=== PATIENT | female | born 1965 | race Caucasian/White ===

== ENCOUNTER 2024-11-04 11:04 | Outpatient (CLI) | payer BC, SELFPAY ==
--- NOTE | ~2024-11-04 | MM_ITS ---
EXAMINATION: MM screening giacomo BI w estefanía HISTORY: Screening TECHNIQUE: Craniocaudal and mediolateral oblique 3-D tomosynthesis images were obtained and synthetic 2-D images were generated. CAD analysis was submitted and interpreted. COMPARISON: Comparison to multiple prior studies sequentially, with oldest reviewed study dated 08/2015. BREAST PARENCHYMAL COMPOSITION: Not dense: There are scattered areas of fibroglandular density. FINDINGS: There is no evidence of suspicious mass, calcification, or architectural distortion to sugg est malignancy in either breast. There has been no suspicious interval change. IMPRESSION: 1. No mammographic evidence of malignancy. 2. Recommend routine screening mammography in one year. BI-RADS Category 1: Negative Reviewed, dictated and finalized at location A.
--- OUTSIDE RECORDS SUMMARY | 2024-11-04 16:26 | XMS_ITS | Referral Summary ---
Author Organization [facility] [place] [address] lto Address [address] [place] [address] Care Team Providers Care Abstractor Name Role Phone Cash Kaplan MD Primary Care Provider [phone] Jefferson Waite MD Unavailable [phone] Jayant Aguila DC Unavailable [phone] [place] Unavailable [phone] Alexander Amos MD PhD Unavailable [phone] Encounters Date Type Department Care Team Description 10/04/2024 Telephone [facility] [address] [address] Cash Kaplan MD 09/20/2024 2:30 PM CDT Office Visit [facility] [address] [address] Cash Kaplan MD Chronic hypoxemic respiratory failure (HCC) (Primary Dx); Pulmonary hypertension associated with mediastinal fibrosis (CMS/HCC) (HCC); Systolic congestive heart failure, unspecified HF chronicity (HCC); ICD (implantable cardioverter-defibrill ator) in place; Encounter for screening mammogram for malignant neoplasm of breast; Paroxysmal atrial fibrillation (HCC); Controlled type 2 diabetes mellitus without complication, without long-term current use of insulin (HCC); BMI 30.0-30.9,adult; Obesity (BMI 30.0-34.9) 09/11/2024 8:45 AM CDT Lab [facility] [address] [place] [address] Controlled type 2 diabetes mellitus without complication, without long-term current use of insulin (HCC) 09/08/2024 Telephone [facility] [address] [place] [address] Cash Kaplan MD Medical Question/Miscellaneous 08/10/2024 7:15 AM STOREROOM KEEPER Ancillary Procedure [place] [employer] Chief [address] [place] [id number] Dilated cardiomyopathy (HCC); ICD (implantable cardioverter-defibrill ator) in place; SVT (supraventricular tachycardia); SSS (sick sinus syndrome) ([facility]) from Last 3 Months Allergies No known active allergies Medications aspirin 81 mg tablet Take 1 tablet (81 mg total) by mouth nightly Active oxygen Administer 3 L/min into each nostril as needed Active fluticasone propionate (FLONASE) 50 mcg/actuation nasal spray Administer 2 sprays into each nostril daily 16 mL 11 3 Active blood glucose diagnostic (glucose blood) strip Use as directed to test blood sugar 100 each 11 4 Active furosemide (LASIX) 40 mg tablet TAKE 1 TABLET BY MOUTH EVERY DAY 90 tablet 3 4 Active atorvastatin (LIPITOR) 20 mg tablet TAKE 1 TABLET BY MOUTH EVERY DAY 90 tablet 3 4 Active blood-glucose meter (OneTouch Ultra2 Meter) [facility] USE DAILY OR DIRECTED FOR MONITORING OF DIABETES. 1 each 1 4 Active potassium chloride ER (KLOR-CON) 20 mEq CR tablet Take 1 tablet (20 mEq total) by mouth daily 90 tablet 3 4 Active spironolactone (ALDACTONE) 25 mg tablet TAKE 1 TABLET BY MOUTH EVERY DAY 90 tablet [address] (PROTONIX) 40 mg EC tabletIndication s:Gastroesophage al reflux disease, unspecified whether esophagitis present Take 1 tablet (40 mg total) by mouth daily 90 tablet 1 4 Active nx-Rh-jtn-iron-f olic-phytostrl 3-200-400 mg-mcg-mg tablet Take 2 capsules by mouth daily Active losartan (COZAAR) 25 mg tablet Take 0.5 tablets (12.5 mg total) by mouth daily 15 tablet 11 4 06/06/20 25 Active carvediloL (COREG) 25 mg tablet Take 1 tablet (25 mg total) by mouth 2 (two) times a day 180 tablet 3 5 Active Active Problems Problem Noted Date Diagnosed Date Paroxysmal atrial fibrillation 09/28/2024 Assessment & Plan (09/28/2024 1:52 PM CDT): No bleeding diatheses and will monitor response. Encounter for screening mamm ogram for malignant neoplasm of breast 09/28/2024 Assessment & Plan (09/28/2024 1:53 PM CDT): Breast cancer screening and mammogram and will follow response. BMI 30.0-30.9,adult 09/28/2024 Assessment & Plan (09/28/2024 1:53 PM CDT): Encoruage 150min/week aerobic exericse. Healthy food choices and will follow response. Obesity (BMI 30.0-34.9) 09/28/2024 Controlled type 2 diabetes m ellitus without complication, without long-term current use of insulin 03/27/2024 Assessment & Plan (09/28/2024 1:53 PM CDT): Diet controlled and will continue to follow repsonse. Assessment & Plan (03/27/2024 3:21 PM CDT): Lab Results Component Value Date HGBA1C 6.8 (H) 03/20/2024 HGBA1C 7.2 (H) 09/13/2023 HGBA1C 6.5 (H) 08/19/2020 Improving; continues checking bg daily. Average am fasting < 120. Is tracking intake and sugars. Noted benefit from visit with staff educator. Encounter for fitting or adj ustment of implantable cardioverter-defibrillator (ICD) 12/06/2023 ICD (implantable cardioverter-defibrillator) dis charge 07/06/2023 Inappropriate shocks from IC D (implantable cardioverter-defibrillator) due to SVT 07/06/2023 Assessment & Plan (07/13/2023 9:14 AM STOREROOM KEEPER): Presenting with inappropriate ICD shocks from SVT, likely atrial tachycardia. Given her complex pulmonary and pulmonary vein history with multiple prior interventions including pulmonary vein stenting, she has probable substrate for inducing atrial arrhythmias. She is having breakthrough arrhythmias and ICD shocks despite maximum dose carvedilol 25 mg b.i.d. and is transferred for consideration of ablation. This will need to be weighed against her history of severe pulmonary HTN and procedural risks versus a trial of medical therapy. Her mediastinal fibrosis likely precludes the use of amiodarone, but could consider sotalol, flecainide, propafenone and/or re-initiation of digoxin -device interrogation with inappropriate shocks for SVT --> VT1 zone increased from 170bpm to 185bpm -continue carvedilol 25 mg b.i.d. -continue dofetilide 500mcg BID with EKG 2 hours after each dose -EKGs stable -strict telemetry -antiarrhythmic management d/w Dr. Euceda--he does not feel pt would be appropriate amiodarone candidate from pulmonary standpoint. She has previously tolerated gen anesthesia so would likely be ok for anesthesia if ablation needs to be pursued -rx sent to [facility], requires PA - PA submitted and approved -pt had SVT 07/09 requiring adenosine and dofetilide increased to 500mcg BID, had SVT again 07/11 requiring adenosine -plan for SVT ablation today Assessment & Plan (07/09/2023 12:07 PM STOREROOM KEEPER): Presenting with inappropriate ICD shocks from SVT, likely atrial tachycardia. Given her complex pulmonary and pulmonary vein history with multiple prior interventions including pulmonary vein stenting, she has probable substrate for inducing atrial arrhythmias. She is having breakthrough arrhythmias and ICD shocks despite maximum dose carvedilol 25 mg b.i.d. and is transferred for consideration of ablation. This will need to be weighed against her history of severe pulmonary HTN and procedural risks versus a trial of medical therapy. Her mediastinal fibrosis likely precludes the use of amiodarone, but could consider sotalol, flecainide, propafenone and/or re-initiation of digoxin -device interrogation with inappropriate shocks for SVT -continue carvedilol 25 mg b.i.d. -dofetilide load started--second dose will be this am -EKG last night stable -continue dofetilide 250mcg BID and follow EKG 2 hours after each dose -strict telemetry -antiarrhythmic management d/w Dr. Euceda--he does not feel pt would be appropriate amiodarone candidate from pulmonary standpoint. She has previously tolerated gen anesthesia so would likely be ok for anesthesia if ablation needs to be pursued -rx sent to [facility] pharmacy for paula check Assessment & Plan (07/08/2023 9:16 AM STOREROOM KEEPER): Presenting with inappropriate ICD shocks from SVT, likely atrial tachycardia. Given her complex pulmonary and pulmonary vein history with multiple prior interventions including pulmonary vein stenting, she has probable substrate for inducing atrial arrhythmias. She is having breakthrough arrhythmias and ICD shocks despite maximum dose carvedilol 25 mg b.i.d. and is transferred for consideration of ablation. This will need to be weighed against her history of severe pulmonary HTN and procedural risks versus a trial of medical therapy. Her mediastinal fibrosis likely precludes the use of amiodarone, but could consider sotalol, flecainide, propafenone and/or re-initiation of digoxin -device interrogation with inappropriate shocks for SVT -continue carvedilol 25 mg b.i.d. -dofetilide load started--second dose will be this am -EKG last night stable -continue dofetilide 250mcg BID and follow EKG 2 hours after each dose -strict telemetry Assessment & Plan (07/07/2023 3:59 PM STOREROOM KEEPER): Presenting with inappropriate ICD shocks from SVT, likely atrial tachycardia. Given her complex pulmonary and pulmonary vein history with multiple prior interventions including pulmonary vein stenting, she has probable substrate for inducing atrial arrhythmias. She is having breakthrough arrhythmias and ICD shocks despite maximum dose carvedilol 25 mg b.i.d. and is transferred for consideration of ablation. This will need to be weighed against her history of severe pulmonary HTN and procedural risks versus a trial of medical therapy. Her mediastinal fibrosis likely precludes the use of amiodarone, but could consider sotalol, flecainide, propafenone and/or re-initiation of digoxin -device interrogation with inappropriate shocks for SVT -continue carvedilol 25 mg b.i.d. 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 Navjot Lambert She is doing well post ablation without recurrence of SVT Continue coreg Impaired fasting glucose 03/05/2023 Assessment & Plan (03/05/2023 9:39 AM CDT): Will check A1c with upcoming labs. Mixed hyperlipidemia 03/05/2023 Assessment & Plan (03/05/2023 9:44 AM CDT): Patient is compliant with atorvastatin 20 mg daily, LDL at goal of less than 100. Pericarditis 07/29/2022 BMI 29.0-29.9,adult 10/14/2021 Assessment & Plan (03/05/2023 9:40 AM CDT): Discussed healthy diet and importance of regular physical activity. Assessment & Plan (10/14/2021 8:52 AM CDT): Weight down. Working from home still. Reviewed need to lose weight, reviewed health benefits. Reviewed recommendations for daily intake & activity 20-30 minutes/day. Discussed healthy diet and importance of regular physical activity. Need for zoster vaccination 10/14/2021 Assessment & Plan (10/14/2021 9:49 AM CDT): Varicella-zoster vaccine given today. Discussed possible tenderness/redness at injection site. Aware to return in 2-6 months. Chronic hypoxemic respiratory failure 09/01/2021 Assessment & Plan (09/28/2024 1:52 PM CDT): Continues on O2 3 LPM via NC and will monitor response. Pacemaker generator end of life 07/18/2021 Overview (07/18/2021): Added automatically from request for surgery [id number] Encounter for well woman exa m with routine gynecological exam 09/19/2020 Assessment & Plan (10/14/2021 8:53 AM CDT): [facility]: pap & breast exam completed today. Will call w/pap results when received. Instructed in SBE. to perform monthly in shower; preferably after menses. Aware that she may have some blood tinged discharge with wiping today after pap. Assessment & Plan (09/19/2020 12:36 PM CDT): WWE: pap & breast exam completed today. Will call w/pap results when received. Instructed in SBE. to perform monthly in shower; preferably after menses. Aware that she may have some blood tinged discharge with wiping today after pap. Encounter for osteoporosis s creening in asymptomatic postmenopausal patient 09/19/2020 Assessment & Plan (10/14/2021 8:53 AM CDT): DEXA ordered. Will contact with results once received. Assessment & Plan (09/19/2020 12:36 PM CDT): DEXA ordered. Will contact with results once received. Will have done at [facility]. Breast cancer screening by mammogram 09/19/2020 Assessment & Plan (03/05/2023 9:40 AM CDT): Patient to call and schedule mammogram, order given today. Assessment & Plan (10/14/2021 8:53 AM CDT): Last mamm 05/2018. Mammogram order given; will call with results when received. Encouraged to perform monthly SBE. Assessment & Plan (09/19/2020 12:41 PM CDT): Mammogram order given; will call with results when received. Encouraged to perform monthly SBE. Will have done at [facility]. Pre-transplant evaluation for lung transplant Overview (07/25/2020): Added automatically from request for surgery [id number] AVNRT (AV dinora re-entry tachycardia) 11/02/2019 Overview (06/06/2024): Status post slow pathway ablation of AVNRT on 13 July 2023 ([facility])--apparently, there was a pathway on the left side that was not ablated.. Had AFib with RVR on 14 July 2017 causing ICD shock. Not on full-dose oral anticoagulation. Assessment & Plan (06/06/2024 9:11 AM STOREROOM KEEPER): Having occasional episodes of fast heartbeats. It could be SVT or nonsustained V-tach. Assessment & Plan (12/21/2023 10:00 AM CDT): Has had a few short runs of rapid heartbeat/palpitation but nothing like in June 2023 or July 2023 causing the ICD shocks. We discussed AV dinora reentry tachycardia ablation done 5 months ago. Today's ICD rep check showed a brief episode of SVT in mid November 2023. Assessment & Plan (03/05/2023 9:41 AM CDT): Patient denies any palpitations, dizziness or chest pain. Normal sinus rhythm today in office. Patient managed by Cardiology, ICD in place. Assessment & Plan (12/08/2022 9:03 AM CDT): Patient does not feel any palpitations, dizziness or syncope. We discussed today's ICD rep check showing 2 episodes of SVT lasting 10 seconds each. Will keep an eye on this issue. Assessment & Plan (12/09/2021 9:15 AM CDT): Patient denies any palpitations, dizziness or syncope. Ty Vasc score is 1 anyway. An in office device ICD check will be done in the next week or so. Assessment & Plan (11/07/2020 2:14 PM CDT): Patient has not had any palpitations, dizziness or syncope. Exam today revealed a regular rhythm. Assessment & Plan (11/14/2019 8:45 AM CDT): No recent palpitations dizziness or syncope. ICD (implantable cardioverter-defibrillator) in place 11/02/2019 Overview (06/06/2024): Status post Guidant ICD on 20 February 2005 for nonischemic cardiomyopathy. Replaced with [employer] Teligen 100 ICD on 19 August 2011. Replaced with [employer] ICD on 23 July 2021 (RL)--SVC coil had to be taken out of the loop. Had a self terminated 21 second episode of nonsustained V-tach on 29 April 2024. Assessment & Plan (09/28/2024 1:52 PM CDT): No firing of ICD , battery in place. Assessment & Plan (06/06/2024 9:11 AM STOREROOM KEEPER): We discussed nonsustained V-tach episode happening a few weeks ago occurring in the evening. She has been having occasional episodes of tachycardia lasting seconds only. Initially, I thought it might be AV dinora reentry tachycardia, but now it could be nonsustained V-tach episodes. Thus, we should restart losartan to get the heart stronger. Patient already on Coreg 25 mg p.o. b.i.d.. Assessment & Plan (12/21/2023 10:01 AM CDT): ICD rep check remotely earlier this month showed episode an episode of SVT in mid November 2023. Device rep check in the office showed great numbers otherwise. More than 12 years left on the device. Left upper chest site looks fine. Assessment & Plan (08/17/2023 9:52 AM STOREROOM KEEPER): Single chamber ICD is functioning appropriately as programmed Lead impedance, sensing, and threshold are stable No programming changes Continue remote monitoring Assessment & Plan (07/16/2023 10:34 AM STOREROOM KEEPER): Patient denies any ongoing or persistent palpitations. Did have 1 episode of for she thought she was having palpitations today of discharge. Assessment & Plan (12/08/2022 9:06 AM CDT): We discussed today's ICD rep check showing pretty good numbers. Also discussed device remote check from early November 2022 showing 1 episode of nonsustained V-tach. Again, she is asymptomatic. She will keep an eye on future episodes of palpitations, etc.. Assessment & Plan (12/09/2021 9:15 AM CDT): No ICD shocks since 2018. Patient denies any palpitations, dizziness or syncope. Unfortunately, device rep did not show up for an in office ICD rep check today. Will try to reschedule for an in office ICD rep check in the next week or two. We did discuss the device remote check from October 2021--everything looked good at that time. Left upper chest ICD site looks fine on my examination today. Assessment & Plan (07/30/2021 4:31 PM STOREROOM KEEPER): Patient has done well since ICD change out. No fever or wound drainage. Not much pain. Assessment & Plan (11/07/2020 2:13 PM CDT): Apparently now some issues with possible premature battery depletion. Will do remote check later this month to see what the status is. Otherwise, ICD rep check numbers good today. o evidence of atrial fibrillation. A few short nonsustained V-tach episodes. Assessment & Plan (11/14/2019 8:46 AM CDT): Discussed last remote from September 2019. One nonsustained V-tach terminated on its own. Patient would like to have a wireless remote. I called [employer] sales representatives and hopefully this can be taken care of soon. 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 On 3 L O2 nasal cannula 24/7 for several years now. Assessment & Plan (12/08/2022 9:04 AM CDT): Shortness of breath about the same. Will be seeing the hair specialist at [place] in a few days. We discussed severe pulmonary hypertension noted on echo from July 2022. Assessment & Plan (12/09/2021 9:16 AM CDT): No recent intervention by the [place] hair specialist. Shortness of breath is about the same--not any worse. CHF (congestive heart failure) 03/31/2018 Overview (06/06/2024): Moderate nonischemic cardiomyopathy in the past. Normal coronaries by catheterization on 20 April 2007 and on another catheterization 21 August 2020. Normal LV function by echo 06 July 2019. Normal LVEF on echo 08 October 2020. Normal LVEF on echo 23 October 2021. Normal LVEF on echo 30 July 2022. Mild LV systolic dysfunction on echo 08 July 2023. LVEF of 47%. Mild LV systolic dysfunction on echo 23 December 2023. LVEF of 46%. On Aldactone 25 mg daily, Lasix 40 mg daily, Coreg 25 b.i.d. On losartan 50 mg daily, her blood pressure dropped too much and she did not feel well. Assessment & Plan (09/28/2024 1:52 PM CDT): Fluid overload and will follow response. Continues to montior dailiy weights and will monitor response. Assessment & Plan (06/06/2024 9:08 AM STOREROOM KEEPER): We again discussed mild LV systolic dysfunction. Apparently could not take Entresto as per my discussion with the hair specialist. She will ask the hair specialist again in a few weeks to see why Entresto is contraindicated. In the meantime, we should retry losartan but at a much lower dose of 12.5 mg daily. Hopefully, she can take it because this will help get the LVEF better. This is important in light of the nonsustained V-tach episode noted a few weeks ago. We definitely want to get heart stronger. Empagliflozin is an option but it is expensive. Assessment & Plan (03/27/2024 3:56 PM CDT): Managed by cardiology. Patient reports she discontinued losartan due to symptomatic hypotension. Recommended she reach out to Cardiology update and for further medication management. Blood pressure is well controlled. Reviewed home blood pressure log, systolic averaging 106-118. Assessment & Plan (12/21/2023 9:24 AM CDT): Shortness of breath about the same. We discussed mild LV dysfunction noted on echo 5 months ago. She will get another echocardiogram with her hair specialist at [place] in 2 days. If LV still weak, we should add Entresto / p.o. b.i.d.. Assessment & Plan (07/16/2023 10:35 AM STOREROOM KEEPER): Stable, continues carvedilol 25 mg b.I.d., Lasix 40 mg daily and spironolactone 25 mg daily. Continue potassium supplement. Will have labs completed early next week. She is scheduled for follow-up with Cardiology Dr. Shen Assessment & Plan (07/12/2023 1:03 PM STOREROOM KEEPER): Initially diagnosed with dilated cardiomyopathy but has since had stable recovery of LV systolic function on guideline directed medical therapy. -hemodynamically stable, continue to be euvolemic on exam -continue carvedilol 25 mg b.i.d., lasix 40mg daily, and spironolactone 25mg daily -strict I&Os, daily standing weights, low-Na diet -telemetry Assessment & Plan (07/09/2023 12:06 PM STOREROOM KEEPER): Initially diagnosed with dilated cardiomyopathy but has since had stable recovery of LV systolic function on guideline directed medical therapy. -hemodynamically stable, continue to be euvolemic on exam -continue carvedilol 25 mg b.i.d., lasix 40mg daily, and spironolactone 25mg daily -strict I&Os, daily standing weights, low-Na diet -telemetry Assessment & Plan (07/08/2023 9:18 AM STOREROOM KEEPER): Initially diagnosed with dilated cardiomyopathy but has since had stable recovery of LV systolic function on guideline directed medical therapy. -hemodynamically stable, continue to be euvolemic on exam -continue carvedilol 25 mg b.i.d., lasix 40mg daily, and spironolactone 25mg daily -strict I&Os, daily standing weights, low-Na diet -telemetry Assessment & Plan (07/07/2023 4:01 PM STOREROOM KEEPER): Initially diagnosed with dilated cardiomyopathy but has since had stable recovery of LV systolic function on guideline directed medical therapy. -hemodynamically stable, appears euvolemic on exam -continue carvedilol 25 mg b.i.d., lasix 40mg daily, and spironolactone 25mg daily -strict I&Os, daily standing weights, low-Na diet -telemetry Assessment & Plan (12/08/2022 9:04 AM CDT): We discussed echo findings from July 2022 showing good LV function and severe pulmonary hypertension. No change in medical regimen here. Assessment & Plan (12/09/2021 9:17 AM CDT): We discussed good LV function noted on recent echo this year. No need for another echocardiogram now. Assessment & Plan (11/14/2019 8:44 AM CDT): Patient asked to reduce Coreg dose. I advised that we probably should continue on the same doses of CHF medications for now. Her blood pressures have been acceptable anyway. Assessment & Plan (04/01/2018 9:29 AM CDT): History of HFrEF s/p ICD placement --She reports that prior to starting medication she had a reduced ejection fraction --Most recent TTE showed normal EF --Will continue home medication of Digoxin, Lasix, and Coreg. Elevated LDL cholesterol level 06/23/2017 Overview (12/21/2023): LDL of 93 mg/dL on 12 February 2017. LDL of 124 mg/dL on 16 Nov 2018. LDL of 95 mg/dL on 01 February 2019. LDL of 81 mg/dL on 19 August 2020. LDL of 93 mg/dL on 14 October 2021. LDL of 84 mg/dL on 02 September 2022. LDL of 93 mg/dL on 13 September 2023. On Lipitor 20 mg p.o. q.d.. Normal coronaries by catheterization 20 April 2007 and again normal coronaries on 21 August 2020. Assessment & Plan (06/06/2024 9:09 AM STOREROOM KEEPER): We discussed LDL cholesterol goal of less than 100 mg/dL. She has been at goal since 2019. No change in low-dose Lipitor. Assessment & Plan (07/12/2023 1:03 PM STOREROOM KEEPER): Well controlled on current therapies. Will continue aspirin and atorvastatin 20 mg daily. She has no evidence of CAD based off of [facility] dated 08/21/2020 Assessment & Plan (07/09/2023 12:02 PM STOREROOM KEEPER): Well controlled on current therapies. Will continue aspirin and atorvastatin 20 mg daily. She has no evidence of CAD based off of [facility] dated 08/21/2020 Assessment & Plan (07/06/2023 9:03 PM STOREROOM KEEPER): Well controlled on current therapies. Will continue aspirin and atorvastatin 20 mg daily. She has no evidence of CAD based off of [facility] dated 08/21/2020 Assessment & Plan (12/08/2022 9:06 AM CDT): Discussed LDL cholesterol goal of less than 100 mg/dL. She has been at goal since 2020. No change in medical regimen here Assessment & Plan (12/09/2021 9:17 AM CDT): We discussed LDL cholesterol goal of less than 100 mg/dL as she had normal coronaries twice now. She has been at goal since 2019 so I did not make any change in Lipitor dose. Assessment & Plan (11/07/2020 2:13 PM CDT): We discussed LDL cholesterol goal of less than 100 mg/dL. She has been at goal since 2019. No change in Lipitor dose. Assessment & Plan (11/14/2019 8:45 AM CDT): We discussed that we are not going to change the medication as her LDL was less than 100 mg/dL. Assessment & Plan (06/23/2017 3:54 PM STOREROOM KEEPER): Lipid abnormalities are unchanged. Nutritional counseling was provided. Lipids will be reassessed in 1 year Diet = Low fat diet Avoid ALL fried foods. Limit red meats( Beef, Pork, Saini ) to ONE MEAL maximum per WEEK. Try to eat foods that have been prepared grilled, baked, or broiled. Skinless white meats are much lower fat than dark meats or meat cooked with the skin still attached. Watch food labels: the type of fat consumed is more important than the totol amount of fat. Some fats are better than others: mono or poly - unsaturated fats in [place] or Peanut oil and Fish are much better than Saturated fats in Butter, Cheese, and Red Meat. Try to avoid Trans fats= partially hydrogenated fat =Margerine and oils used at high temperature in fried restaurant foods, snack chips and sweets.. Essential hypertension 06/23/2017 Assessment & Plan (07/12/2023 1:02 PM STOREROOM KEEPER): Currently normotensive. -continue carvedilol 25 mg b.i.d and spironolactone 25 mg daily Assessment & Plan (07/09/2023 12:02 PM STOREROOM KEEPER): Currently normotensive. -continue carvedilol 25 mg b.i.d and spironolactone 25 mg daily Assessment & Plan (07/08/2023 9:18 AM STOREROOM KEEPER): Currently normotensive. -continue carvedilol 25 mg b.i.d and spironolactone 25 mg daily Assessment & Plan (07/07/2023 4:00 PM STOREROOM KEEPER): Currently normotensive. -continue carvedilol 25 mg b.i.d and spironolactone 25 mg daily Assessment & Plan (03/05/2023 9:40 AM CDT): Blood pressure is well controlled. Assessment & Plan (03/31/2018 7:51 PM CDT): Will continue home medication of Coreg. Assessment & Plan (06/23/2017 3:53 PM STOREROOM KEEPER): Hypertension is unchanged. Continue current treatment regimen. Dietary sodium restriction. Weight loss. Regular aerobic exercise. Continue current medications. Blood pressure will be reassessed at the next regular appointment. Lifestyle changes can help you control and prevent high blood pressure, even if you're taking blood pressure medication. Here's what you can do: Eat healthy foods. Eat a healthy diet. Try the Dietary Approaches to Stop Hypertension (DASH) diet, which emphasizes fruits, vegetables, whole grains, poultry, fish and low-fat dairy foods. Get plenty of potassium, which can help prevent and control high blood pressure. Eat less saturated fat and trans fat. Decrease the salt in your diet. A lower sodium level -- 1,500 milligrams (mg) a day -- is appropriate for people 51 years of age or older, and individuals of any age who are black or who have hypertension, diabetes or chronic kidney disease. Maintain a healthy weight. Keeping a healthy weight, or losing weight if you're overweight or obese, can help you control your high blood pressure and lower your risk of related health problems. If you're overweight, losing even 5 pounds (2.3 kilograms) can lower your blood pressure. Increase physical activity. Regular physical activity can help lower your blood pressure, manage stress, reduce your risk of several health problems and keep your weight under control. Limit alcohol. Even if you're healthy, alcohol can raise your blood pressure. If you choose to drink alcohol, do so in moderation. For healthy adults, that means up to one drink a day for women of all ages and men older than age 65, and up to two drinks a day for men age 65 and younger. One drink equals 12 ounces of beer, 5 ounces of wine or 1.5 ounces of 80-proof liquor. Don't smoke. Tobacco injures blood vessel downing and speeds up the process of hardening of the arteries. If you smoke, ask your doctor to help you quit. Manage stress. Reduce stress as much as possible. Practice healthy coping techniques, such as muscle relaxation, deep breathing or meditation. Getting regular physical activity and plenty of sleep can help, too. Notify the office for blood pressure greater than 140/90 Chronic seasonal allergic rhinitis 06/23/2017 Assessment & Plan (06/23/2017 5:19 PM STOREROOM KEEPER): Continue With Flonase, encourage to add Zyrtec Take OTC decongestants for congestion- Mucinex Tylenol for pain/fever If you have high blood pressure or any kidney disease use Tylenol only. Antihistamines- Zyrtec, Benadryl can be used for runny nose. Try saline nasal spray irrigations 2-4 times a day or try using Rufina pot as directed. 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 Moderate to severe TR. Severe pulmonary hypertension on echo 08 July 2023. Mild TR. Severe pulmonary hypertension on echo 23 December 2023. Mild MR/TR. Assessment & Plan (09/28/2024 1:51 PM CDT): Reviwed ongoing oxygen supplementation and will follow response. Continues on furosemide and potassium and tehn also spironolactone and will follow response. Assessment & Plan (03/27/2024 3:57 PM CDT): Continues to follow closely with pulmonology. No change in oxygen requirements. Assessment & Plan (12/21/2023 9:25 AM CDT): Discussed echo findings from July 2023 still showing severe pulmonary hypertension. She will be seeing the hair specialist at [place] in 2 days. Assessment & Plan (07/16/2023 10:33 AM STOREROOM KEEPER): Since undergone multiple pulmonary stenting. Following with Dr. Euceda. No change in oxygen requirement, continues 3-4 L. Assessment & Plan (07/12/2023 1:02 PM STOREROOM KEEPER): Severe pulmonary HTN secondary to chronic fibrosing mediastinitis complicated by chronic hypoxic respiratory failure on baseline 3 L oxygen at home. She has also underwent multiple pulmonary vein stenting. Patient follows with Dr. Euceda -not a candidate for lung transplantation -continue Lasix 40 mg daily -continue supplemental oxygen -antiarrhythmic management d/w Dr. Euceda--he does not feel pt would be appropriate amiodarone candidate from pulmonary standpoint. She has previously tolerated gen anesthesia so would likely be ok for anesthesia if ablation needs to be pursued Assessment & Plan (07/09/2023 12:06 PM STOREROOM KEEPER): Severe pulmonary HTN secondary to chronic fibrosing mediastinitis complicated by chronic hypoxic respiratory failure on baseline 3 L oxygen at home. She has also underwent multiple pulmonary vein stenting. Patient follows with Dr. Euceda -not a candidate for lung transplantation -continue Lasix 40 mg daily -continue supplemental oxygen -antiarrhythmic management d/w Dr. Euceda--he does not feel pt would be appropriate amiodarone candidate from pulmonary standpoint. She has previously tolerated gen anesthesia so would likely be ok for anesthesia if ablation needs to be pursued Assessment & Plan (07/08/2023 9:17 AM STOREROOM KEEPER): Severe pulmonary HTN secondary to chronic fibrosing mediastinitis complicated by chronic hypoxic respiratory failure on baseline 3 L oxygen at home. She has also underwent multiple pulmonary vein stenting. Patient follows with Dr. Euceda -not a candidate for lung transplantation -continue Lasix 40 mg daily -continue supplemental oxygen Assessment & Plan (07/06/2023 9:05 PM STOREROOM KEEPER): Severe pulmonary HTN secondary to chronic fibrosing mediastinitis complicated by chronic hypoxic respiratory failure on baseline 3 L oxygen at home. She has also underwent multiple pulmonary vein stenting. Patient follows with Dr. Euceda -not a candidate for lung transplantation -continue Lasix 40 mg daily Assessment & Plan (11/07/2020 2:12 PM CDT): Discussed recent right heart catheterization from August 2020. At that time, still has severe pulmonary hypertension and she is following up with the [place] [facility] regularly. Shortness of breath is stable. Not taking any special medication for it. Not on oxygen. 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 --Her last cath was 06/17/17 when she was noted to have mean PAP 52 mm Hg, and significant bilateral pulmonary vein stenosis. Her LUPV was dilated at the time upto 10x2 and LLPV dilated with 12x2 atlas. RLPV dilated with a 8x2 cutting balloon after serial dilations with 6x2 atlas and 8x2 atlas. --Recent worsening exercise intolerance as indication for repeat balloon dilation. --Patient had balloon dilation of previous stents yesterday and tolerated the procedure well. Patient will be sent home on infection prophylaxis with Intraconazole 200 mg daily and Bactrim DS 3x/week for 3 months. --She denies chest pain, SOB, or pain/bleeding at insertion sites. No signs of bleeding or infection over femoral insertion sites. --Plan was for initiation of Rituximab therapy today. Will also start patient on Prednisone 40 mg daily with plan to taper by 10 mg each week with discontinuation of prednisone in one month. Cardiomyopathy Assessment & Plan (08/17/2023 9:53 AM STOREROOM KEEPER): Nonischemic cardiomyopathy s/p primary prevention ICD 2011, generator changed 2020 and 07/23/2021 - followed by Dr. Waite Most recent LVEF 47% per TTE 07/08/2023 Compensated on exam Assessment & Plan (07/16/2023 10:34 AM STOREROOM KEEPER): Blood pressure is well controlled Resolved Problems Problem Noted Date Diagnosed Date Resolved Date Class 1 obesity due to exces s calories with serious comorbidity and body mass index (BMI) of 30.0 to 30.9 in adult 09/19/2020 10/14/2021 Assessment & Plan (09/19/2020 12:41 PM CDT): Reviewed need to lose weight, reviewed health benefits. Reviewed recommendations for daily intake & activity 20-30 minutes/day. Discussed healthy diet and importance of regular physical activity. Immunosuppression 08/29/2020 09/17/2023 Chronic obstructive pulmonary disease 08/29/2020 09/17/2023 Assessment & Plan (03/05/2023 9:40 AM CDT): Stable, continue present management. Immunizations Immunization Administration Dates Next Due Influenza, Quadrivalent, Alyce l Culture-based MDCK, Antibiotic Free, Intramuscular 05/06/2019 Influenza, Quadrivalent, Alyce l Culture-based MDCK, Preservative Free, Antibiotic Free, Intramuscular 04/30/2022,04/17/2021,04/07/2020 Influenza, Quadrivalent, Spl it, Intramuscular 04/30/2018,05/02/2017,06/10/2015 Influenza, Quadrivalent, Spl it, Preservative Free, Intramuscular 06/04/2023 Influenza, Trivalent, IM (MDV) 5,05/27/2014,05/24/2013,04/19 Influenza, Trivalent, Preser vative Free, Intramuscular 03/27/2024,03/31/2016,04/19/2012 Influenza, Unspecified 04/30/2018,05/02/2017 Pfizer SARS-CoV-2 Monovalent Vaccination (12+ Yrs) PURPLE 06/30/2021,09/28/2020,09/05/2020 Pneumococcal Polysaccharide PPV23 03/24/2011 ZOSTER Recombinant 10/14/2021 Social History Tobacco Use Types Packs/Day Years Used Date Smoking Tobacco: Never Smokeless Tobacco: Never Tobacco Cessation:Counseling Given: Not Answered Alcohol Use Standard Drinks/Week Comments Not Currently 0 (1 standard drink = 0.6 oz pur e alcohol) [facility] Utilities Answer Date Recorded In the past 12 months has e [employer], gas, oil, or water company threatened to shut off services in your home? No 07/15/2023 Humiliation, Afraid, Rape, and Kick questionnair e Answer Date Recorded Within the last year, have y ou been afraid of your partner or ex-partner? No 09/02/2022 Within the last year, have y ou been humiliated or emotionally abused in other ways by your partner or ex-partner? No Within the last year, have y ou been kicked, hit, slapped, or otherwise physically hurt by your partner or ex-partner? No 09/02/2022 Within the last year, have y ou been raped or forced to have any kind of sexual activity by your partner or ex-partner? No 09/02/2022 Social Connection and Isolat ion Panel [NHANES] Answer Date Recorded In a typical week, how many times do you talk on the phone with family, friends, or neighbors? More than three times a week 07/15/2023 How often do you get togethe r with friends or relatives? Once a week 07/15/2023 How often do you attend [facility] or scientology services? More than 4 times per year 07/15/2023 Do you belong to any clubs o r organizations such as caodaism groups, unions, fraternal or athletic groups, or school groups? No 07/15/2023 How often do you attend meet ings of the clubs or organizations you belong to? Never 07/15/2023 Are you , , di vorced, , never , or living with a partner? 07/15/2023 AUDIT-C Answer Date Recorded Q1: How often do you have a drink containing alc ohol? Monthly or less 09/02/2022 Q2: How many drinks containi ng alcohol do you have on a typical day when you are drinking? 1 or 2 09/02/2022 Q3: How often do you have si x or more drinks on one occasion? Never 09/02/2022 Overall Financial Resource Strain (CARDIA) Answe r Date Recorded How hard is it for you to pa y for the very basics like food, housing, medical care, and heating? Not hard at all 07/15/2023 PHQ-2 Answer Date Recorded PHQ-2 Total Score (If total score is 3 or more points, staff should administer the PHQ-9) 0 09/20/2024 [facility] - Occupational Stress Questionnaire Answer Date Recorded Do you feel stress - tense, restless, nervous, or anxious, or unable to sleep at night because your mind is troubled all the time - these days? To some extent 09/02/2022 Exercise Vital Sign Answer Date Recorde d On average, how many days pe r week do you engage in moderate to strenuous exercise (like a brisk walk)? 7 days 09/02/2022 On average, how many minutes do you engage in exercise at this level? 20 min 09/02/2022 Hunger Vital Sign Answer Date Recorded Within the past 12 months, y ou worried that your food would run out before you got the money to buy more. Never true 07/15/19 24 Within the past 12 months, t he food you bought just didn't last and you didn't have money to get more. Never true 07/15/2023 PRAPARE - Transportation Answer Date Re corded In the past 12 months, has l ack of transportation kept you from medical appointments or from getting medications? No 07/05 In the past 12 months, has l ack of transportation kept you from meetings, work, or from getting things needed for daily living? No 07/15/2023 Housing Stability Vital Sign Answer Alex e Recorded In the last 12 months, was t here a time when you were not able to pay the mortgage or rent on time? No 07/15/2023 In the last 12 months, how many places have you lived? 1 07/15/2023 In the last 12 months, was t here a time when you did not have a steady place to sleep or slept in a [place] [facility] (including now)? No 07/15/2023 Personal Safety Answer Date Recorded Have you ever been in or are you currently in a harmful physical or emotional relationship or is someone making you feel afraid or unsafe? Denies 07/07/2023 Education Answer Date Recorded What is the highest level of school you have completed or the highest degree you have received? High school graduate 07/30/2022 Comments No Sex and Gender Information Value Date Recorded Sex Assigned at Not on file Legal Sex Female 1:17 AM STOREROOM KEEPER Gender Identity Not on file Sexual Orientation Not on file Last Filed Vital Signs Vital Sign Reading Time Taken Comments Blood Pressure 128/68 09/20/2024 2:20 PM CDT Pulse 83 09/20/2024 2:20 PM CDT Temperature 36.7 C (98 F) 09/20/2024 2:20 PM CDT Respiratory Rate 20 09/20/2024 2:20 PM CDT Oxygen Saturation 94% 09/20/2024 2:20 PM CDT 3 liters pulse Inhaled Oxygen Concentration - - Weight 78.9 kg (174 lb) 09/20/2024 2:20 PM CDT Height 160 cm (5' 3 ) 09/20/2024 2:20 PM CDT Body Mass Index 30.82 09/20/2024 2:20 PM CDT Plan of Treatment Not on file Medical Devices Implanted Type Area Specimen Processor Device Identifier Shelf Expiration Date Model / Serial / Lot [employer] C[employer]M. D151 Dynagen Enduralife Easyview 5.37x7.79cm 1 Chamber Is-1 Df-4 - [id number] - [id number] Implanted:Qty: 1 on 07/23/2021 by Jefefrson Waite MD at [facility] ICD [employer] C.[employer]M. 11/01/2022 [id number] / [id number] / [employer] Vascade Mvp 6-12fr Venous Closure [id number] - [id number] Implanted:Qty: 1 on 07/13/2023 by Alexander Amos MD PhD at [facility] Vascular Closure Device [employer] 03/23/2025 [id number] [id number] / / [id number] [employer] Device Closure Vascade Od5 Fr Femoral Artery [id number] - [id number] Implanted:Qty: 1 on 07/13/2023 by Alexander Amos MD PhD at [facility] Vascular Closure Device [employer] 03/10/2025 [id number] -[id number] / / [id number] [employer] Vascade Mvp 6-12fr Venous Closure [id number] - [id number] Implanted:Qty: 1 on 07/13/2023 by Alexander Amos MD PhD at [facility] Vascular Closure Device [employer] 02/18/2025 [id number] [id number] / / [id number] [employer] Device Closure Vascade Od5 Fr Femoral Artery [id number] - [id number] Implanted:Qty: 1 on 07/13/2023 by Alexander Amos MD PhD at [facility] Vascular Closure Device [employer] 04/01/2025 [id number] -[id number] / / [id number] Defib Left: Chest Stents Implanted:Qty: 2 Heart [employer] [id number] 3.3x2.9in Large Envelope Absorbable Polyarylate Minocycline - [id number] Implanted:Qty: 1 on 07/23/2021 by Jefferson Waite MD at [facility] [employer] 01/29/2022 [id number] / / [id number] Procedures Procedure Name Priority Date/Time Associated Diagnosis Comments EGFR Routine 09/11/2024 8:39 AM CDT Controlled type 2 diabetes mellitus without complication, without long-term current use of insulin (HCC) DIFFERENTIAL AUTO Routine 09/11/2024 8:3 9 AM CDT Controlled type 2 diabetes mellitus without complication, without long-term current use of insulin (HCC) CBC WITH AUTO DIFFERENTIAL Routine 09/11/2024 8:39 AM CDT Controlled type 2 diabetes mellitus without complication, without long-term current use of insulin (HCC) COMPREHENSIVE METABOLIC PANEL Routine 09/11/2024 8:39 AM CDT Controlled type 2 diabetes mellitus without complication, without long-term current use of insulin (HCC) LIPID PANEL Routine 09/11/2024 8:39 AM CDT Controlled type 2 diabetes mellitus without complication, without long-term current use of insulin (HCC) HEMOGLOBIN A1C Routine 09/11/2024 8:39 AM CDT Controlled type 2 diabetes mellitus without complication, without long-term current use of insulin (HCC) DEVICE CHECK - REMOTE Routine 08/11/2024 10:15 AM STOREROOM KEEPER Dilated cardiomyopathy (HCC) ICD (implantable cardioverter-defibri llator) in place SVT (supraventricular tachycardia) SSS (sick sinus syndrome) (HCC) ALBUMIN CREATININE RATIO, URINE Routine 03/20/2024 10:47 AM CDT Controlled type 2 diabetes mellitus without complication, without long-term current use of insulin (HCC) STOOL DNA COLOGUARD Routine 10/18/2023 6:30 AM CDT Colon cancer screening PAP AND HIGH RISK HPV, REFLEX TO GENOTYPING Routine 10/14/2021 7:25 AM CDT Encounter for well woman exam with routine gynecological exam HEPATITIS PANEL, ACUTE Routine 08/19/2020 8:24 AM STOREROOM KEEPER SCREENING MAMMOGRAM BILATERAL W ANDRES Schedule Routine, Read Routine (OP Routine) 06/01/2018 Screening for cancer from Last 3 Months or Most Recently Relevant to Health Maintenance Results * eGFR (09/11/2024 8:39 AM CDT) eGFR >90 >=60 mL/min/1. 73 m2 Comment: Interpretive Data Reference Interval Normal >/= 90 mL/min/1.73m2 Mildly decreased* 60 - 89 mL/min/1.73m2 Mildly to moderately decreased 45 - 59 mL/min/1.73m2 Moderately to severely decreased 30 - 44 mL/min/1.73m2 Severely decreased 15 - 29 mL/min/1.73m2 Kidney Failure < 15 mL/min/1.73m2 *Relative to young adult level Estimated glomerular filtration rate is determined by the 2020 CKD-EPI equation recommended by the National Kidney Foundation (A Unifying Approach to GFR Estimation: Recommendations of the NKF-ASK Task Force on Reassessing the Inclusion of Race in Diagnosing Kidney Disease, JASN 2020). The CKD-EPI equation should not be used for patients with unstable renal function and has not been validated in children and those over 70. Current interpretive data was last reviewed 2021. Testing performed by: [facility], [address] [place] [address], [place]., [address] Blood 09/11/2024 8:39 AM CDT 09/11/2024 12:42 PM CDT Rere Joe NP LAB BLOOD ORDERABLES Final Result [facility] ([place]) [facility] Department [place] [address] * (ABNORMAL) Differential, auto (09/11/2024 8:39 AM CDT) Neutrophil abs 8.5(H) 1.5 - 6.5 K/cumm Comment:Testing performed by : [facility], [address] [place] [address]., [id number] Imm gran abs 0.0 0.0 - 0.1 K/cumm [facility] ([place]) Comment:Testing performed by : [address], [id number] Lymphocyte abs 1.9 0.8 - 3.3 K/cumm [facility] ([place]) Comment:Testing performed by : [facility], [address] [place] [address], [id number] Monocyte abs 0.8 0.2 - 0.8 K/cumm [facility] ([place]) Comment:Testing performed by : [facility], [address] [place] [address]., [id number] Eosinophil abs 0.4 0.0 - 0.5 K/cumm [facility] ([place]) Comment:Testing performed by : [address], [address] Basophil abs 0.1 0.0 - 0.1 K/cumm [facility] ([place]) Comment:Testing performed by : [address], [id number] Neutrophil pct 72.7 % [facility] ([place]) Comment: Interpretive Data Percent cell count reference ranges are not reported, since discordance with absolute values may lead to misinterpretation of CBC data. Current Interpretive Data was last revised on 2017. Testing performed by: [address], [id number] Imm gran pct 0.3 % [facility] ([place]) Comment: Interpretive Data Percent cell count reference ranges are not reported, since discordance with absolute values may lead to misinterpretation of CBC data. Current Interpretive Data was last revised on 2017. Testing performed by: [facility], [address] [place] [address]., [id number] Lymphocyte pct 16.5 % [facility] ([place]) Comment: Interpretive Data Percent cell count reference ranges are not reported, since discordance with absolute values may lead to misinterpretation of CBC data. Current Interpretive Data was last revised on 2017. Testing performed by: [facility], [address] [place] [address]., [id number] Monocyte pct 6.8 % [facility] ([place]) Comment: Interpretive Data Percent cell count reference ranges are not reported, since discordance with absolute values may lead to misinterpretation of CBC data. Current Interpretive Data was last revised on 2017. Testing performed by: [facility], [address] [place] [address], [id number] Eosinophil pct 3.1 % [facility] ([place]) Comment: Interpretive Data Percent cell count reference ranges are not reported, since discordance with absolute values may lead to misinterpretation of CBC data. Current Interpretive Data was last revised on 2017. Testing performed by: [address], [address] Basophil pct 0.6 % [facility] ([place]) Comment: Interpretive Data Percent cell count reference ranges are not reported, since discordance with absolute values may lead to misinterpretation of CBC data. Current Interpretive Data was last revised on 2017. Testing performed by: [address] [address] Blood 09/11/2024 8:39 AM CDT 09/11/2024 12:28 PM CDT Rere Joe FOOD SCIENCE TECHNICIAN LAB BLOOD ORDERABLES Final Result [facility] ([place]) [facility] [place] [address] * (ABNORMAL) CBC with auto differential (09/11/2024 8:39 AM CDT) WBC 11.7(H) 3.8 - 9.9 K/cumm Comment:Testing performed by : [address], [address] Hgb 12.0 11.9 - 15.5 g/dL [facility] ([facility]ELA) Comment:Testing performed by : [address], [address] Hct 40.5 35.6 - 45.5 % [facility] ([place]) Comment:Testing performed by : [address], [address] Plt 248 150 - 400 K/cumm [facility] ([place]) Comment:Testing performed by : [address], [address] MPV 11.9 9.1 - 12.3 fL [facility] ([place]) Comment:Testing performed by : [address], [address] RBC 4.33 3.90 - 5.20 M/cumm [facility] ([place]) Comment:Testing performed by : [address], [address] MCV 93.5 81.3 - 96.4 fL [facility] ([place]) Comment:Testing performed by : [address], [address] MCH 27.7 27.1 - 33.3 pg [facility] ([place]) Comment:Testing performed by : [address], [address] MCHC 29.6(L) 32.3 - 35.7 g/dL [facility] ([place]) Comment:Testing performed by : [address], [address] RDW CV 14.8 11.1 - 14.9 % [facility] ([place]) Comment:Testing performed by : [address], [address] RDW SD 51.2(H) 35.7 - 48.1 fL [facility] ([place]) Comment:Testing performed by : [address], [address] NRBC abs 0.00 0.00 - 0.01 K/cumm ZARI ROMERO (LEELA) Comment:Testing performed by : [facility], [address] [place] [address]., [address] Blood 09/11/2024 8:39 AM CDT 09/11/2024 12:28 PM CDT Rere Joe FOOD SCIENCE TECHNICIAN LAB BLOOD ORDERABLES Final Result Performing Organization Address City/[facility]/ZIP Co de Phone Number ZARI ROMERO (LEELA) [address] [facility] [place] [address] * (ABNORMAL) Hemoglobin A1c (09/11/2024 8:39 AM CDT) Hgb A1C 6.8(H) 4.0 - 5.6 % Comment:Testing performed by : [facility], [address] [place] [address], [address] Estimated Average Glucose 148 mg/dL [facility] (LEELA) Comment: The ADA recommends reporting an estimated Average Glucose (eAG) with all Hemoglobin A1c results using the equation derived from a study of 507 normal and diabetic adults. Minority populations were underrepresented and children were not included. (Diabetes Care 31:5118-9494, 2008). The eAG is not equivalent to a fasting glucose. Testing performed by: [facility], [address] [place] [address]., [address] Blood 09/11/2024 8:39 AM CDT 09/11/2024 12:28 PM CDT Rere Joe NP LAB BLOOD ORDERABLES Final Result Performing Organization Address City/[facility]/ZIP Co de Phone Number ZARI ROMERO (LEELA) 1 [facility] [employer] [place] [address] * Lipid panel (09/11/2024 8:39 AM CDT) Cholesterol 147 30 - 199 mg/dL Comment: Interpretive Data Ages < or = 19 years Acceptable: <170 mg/dL Borderline high: 170-199 mg/dL High: >or= 200 mg/dL Ages > or = 20 years Desirable: <200 mg/dL Borderline high: 200-239 mg/dL High: >or= 240 mg/dL Literature References: 1. Expert Panel on Integrated Guidelines for Cardiovascular Health and Risk Reduction in Children and Adolescents. Pediatrics 2011;128:S213 2. NCEP Expert Panel. Circulation 2004;110:227 Current Interpretive Data was last revised on 2018. Testing performed by: [facility], [address] [place] [address]., [address] Triglycerides 84 <=149 mg/dL [facility] ([place]) Comment: Interpretive Data Ages < or = 9 years Acceptable: <75 mg/dL Borderline high: 75-99 mg/dL High: >or= 100 mg/dL Ages 10 to 20 years Acceptable: <90 mg/dL Borderline high: 90-129 mg/dL High: >or= 130 mg/dL Ages > or = 20 years Desirable: <150 mg/dL Borderline high: 150-199 mg/dL High: 200-499 mg/dL Very high: >or= 499 mg/dL Literature References: 1. Expert Panel on Integrated Guidelines for Cardiovascular Health and Risk Reduction in Children and Adolescents. Pediatrics 2011;128:S213 2. NCEP Expert Panel. Circulation 2004;110:227 Current Interpretive Data was last revised on 2018. Testing performed by: [address] [address] HDL 45 >=40 mg/dL [facility] ([place]) Comment: Interpretive Data Ages < or = 19 years Acceptable: >45 mg/dL Borderline low: 40-45 mg/dL Low: <40 mg/dL Ages > or = 20 years Desirable: >or= 60 mg/dL Low: <40 mg/dL Literature References: 1. Expert Panel on Integrated Guidelines for Cardiovascular Health and Risk Reduction in Children and Adolescents. Pediatrics 2011;128:S213 2. NCEP Expert Panel. Circulation 2004;110:227 Current Interpretive Data was last revised on 2018. Testing performed by: [address] [address] LDL, calculated 86 <=129 mg/dL [facility] ([place]) Comment: Interpretive Data Ages < or = 19 years Acceptable: <110 mg/dL Borderline high: 110-129 mg/dL High: >or= 130 mg/dL Ages > or = 20 years Optimal: <100 mg/dL Near optimal: 100-129 mg/dL Borderline high: 130-159 mg/dL High: >160 mg/dL Calculated using the Keshawn LDL-C estimating equation. This equation was implemented on 2024. Prior to this date LDL-C was estimated using the Friedewald equation. Literature References: 1. Expert Panel on Integrated Guidelines for Cardiovascular Health and Risk Reduction in Children and Adolescents. Pediatrics 2011;128:S213 2. NCEP Expert Panel. Circulation 2004;110:227 3. Keshawn Quiros et al. TASIA Cardiol. 2020 November 02;5(5):540-548. doi: 10.1001/jamacardio.2020.0013 Current Interpretive Data was last revised on 2024. Testing performed by: [address] [address] Non-HDL Cholesterol 102 mg/dL ZARI RUBY) Comment: Interpretive Data Ages < or = 19 years Acceptable: <120 mg/dL Borderline high: 120-144 mg/dL High: >145 mg/dL Ages > or = 20 years When triglycerides are >200 mg/dL, Non-HDL cholesterol is a secondary target of therapy with treatment goals that are 30 mg/dL greater than the LDL cholesterol target. Literature References: 1. Expert Panel on Integrated Guidelines for Cardiovascular Health and Risk Reduction in Children and Adolescents. Pediatrics 2011;128:S213 2. NCEP Expert Panel. Circulation 2004;110:227 Current Interpretive Data was last revised on 2018. Testing performed by: [facility], [address] [place] [address]., [address] Chol/HDL ratio 3 RUSTY ROMERO (LEELA) Comment:Testing performed by : [address] [address] Blood 09/11/2024 8:39 AM CDT 09/11/2024 12:28 PM CDT Rere Joe NP LAB BLOOD ORDERABLES Final Result [facility] ([place]) [address] [place] [address] * Comprehensive metabolic panel (09/11/2024 8:39 AM CDT) Sodium 141 135 - 145 mmol/L Comment:Testing performed by : [address] [address] Potassium, pl 4.0 3.3 - 4.9 mmol/L [facility] ([place]) Comment:Testing performed by : [facility], [address] [place] [address]., [address] Chloride 98 97 - 110 mmol/L [facility] ([place]) Comment:Testing performed by : [address], [address] CO2 30 22 - 32 mmol/L [facility] ([place]) Comment:Testing performed by : [address], [address] Anion gap 13 2 - 15 mmol/L [facility] ([place]) Comment:Testing performed by : [address] [address] BUN 9 6 - 25 mg/dL [facility] ([place]) Comment:Testing performed by : [address], [address] Creatinine 0.65 0.60 - 1.10 mg/dL [facility] ([place]) Comment:Testing performed by : [address] [address] Glucose 125 70 - 199 mg/dL [facility] Comment: Interpretive Data Fasting glucose >/= 126 mg/dl is diagnostic for diabetes. Fasting is defined as no caloric intake for at least 8 hours. Fasting glucose between 100 mg/dl to 125 mg/dl is diagnostic of prediabetes. In a patient with classic symptoms of hyperglycemia or hyperglycemic crisis, a random glucose >/= 200 mg/dl is diagnostic for diabetes. In the absence of unequivocal hyperglycemia, results should be confirmed by repeat testing. The classification and Diagnosis of Diabetes Diabetes Care 2021; 46: S19-S40. Current interpretive data was last revised 2022. Testing performed by: [address], [address] Calcium 9.6 8.5 - 10.3 mg/dL [facility] ([place]) Comment:Testing performed by : [facility], [address] [place] [address]., [address] Bilirubin, total 1.2 0.1 - 1.2 mg/dL [facility] ([place]) Comment:Testing performed by : [facility], [address] [place] [address]., [address] Protein, pl 8.1 6.5 - 8.5 g/dL [facility] ([place]) Comment:Testing performed by : [facility], [address] [place] [address], [address] Albumin 4.2 3.5 - 5.0 g/dL [facility] ([place]) Comment:Testing performed by : [facility], [address] [place] [address], [address] Alk phos 119 40 - 130 Units/L [facility] ([place]) Comment:Testing performed by : [facility], [address] [place] [address], [address] ALT 19 7 - 45 Units/L [facility] ([place]) Comment:Testing performed by : [facility], [address] [place] [address], [address] AST 24 10 - 45 Units/L [facility] ([place]) Comment:Testing performed by : [facility], [address] [place] [address], [address] Blood 09/11/2024 8:39 AM CDT 09/11/2024 12:28 PM CDT Rere Joe NP LAB BLOOD ORDERABLES Final Result [facility] ([place]) 1 [facility] [place] [address] * DEVICE CHECK - REMOTE (08/11/2024 10:15 AM STOREROOM KEEPER) Anatomical Region Laterality Modality Other Narrative 08/22/2024 9:06 AM STOREROOM KEEPER Images from the original result were not included. 08/11/2024 [employer] quarterly remote device check NOTE The following shows snippets from the complete quarterly report. The complete report in its entirety is attached to this Result Text in Administrative Underwriter. 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 Continue remote monitoring every 3 months. No Alerts Reviewed By Dinorah Kat RN BSN Jefferson Waite MD CV CARDIAC SERVICES PROCEDURE S Final Result * Albumin Creatinine Ratio, Urine (03/20/2024 10:47 AM CDT) Albumin Ur <12.0 mg/L Comment: Interpretive Data No reference range established. Current interpretive data was last revised 2018. Testing performed by: [address] [address] Creatinine Ur 50.0 mg/dL [facility]I [facility] (LEELA) Comment: Interpretive Data No reference range established. Current interpretive data was last revised 2018. Testing performed by: [facility], [address] [place] [address]., [address] Albumin Creatinine Ratio, Ur <24 1 - 29 mg/g [facility]I [facility] (LEELA) Comment:Testing performed by : [address] [address] Urine 03/20/2024 10:4 7 AM CDT 03/20/2024 8:54 PM CDT Rere Joe FOOD SCIENCE TECHNICIAN LAB URINE ORDERABLES Final Result [facility] (LEELA) 1 [facility] [place] [address] * Stool DNA - Cologuard (10/18/2023 6:30 AM CDT) Stool DNA - Cologuard Negative Negative [employer] (Closed) (CLIA #:[id number]) Comment: NEGATIVE TEST RESULT. A negative Cologuard result indicates a low likelihood that a colorectal cancer (CRC) or advanced adenoma (adenomatous polyps with more advanced pre-malignant features) is present. The chance that a person with a negative Cologuard test has a colorectal cancer is less than 1 in 1500 (negative predictive value >99.9%) or has an advanced adenoma is less than 5.3% (negative predictive value 94.7%). These data are based on a prospective cross-sectional study of 10,000 individuals at average risk for colorectal cancer who were screened with both Cologuard and colonoscopy. (Magdiel Springer al, N Engl J Med 2014;370(14):2828-4817) The normal value (reference range) for this assay is negative. COLOGUARD RE-SCREENING RECOMMENDATION: Periodic colorectal cancer screening is an important part of preventive healthcare for asymptomatic individuals at average risk for colorectal cancer. Following a negative Cologuard result, the [place] Cancer Society and U.S. Multi-Society Task Force screening guidelines recommend a Cologuard re-screening interval of 3 years. References: [employer] Cancer Society Guideline for Colorectal Cancer Screening: https://www.cancer.org/cancer/kvfdj-jacfgu-caoygu/xmcyppbda-adkuemppb-oujgane/ac s-rec ommendations.html.; Eric DK, Mona CR, Alberta DollK, Colorectal Cancer Screening: Recommendations for Physicians and Patients from the U.S. Multi-Society Task Force on Colorectal Cancer Screening , Am J Gastroenterology 2017; 112:3886-3411. TEST DESCRIPTION: Composite algorithmic analysis of stool DNA-biomarkers with hemoglobin immunoassay. Quantitative values of individual biomarkers are not reportable and are not associated with individual biomarker result reference ranges. Cologuard is intended for colorectal cancer screening of adults of either sex, 45 years or older, who are at average-risk for colorectal cancer (CRC). Cologuard has been approved for use by the U.S. FDA. The performance of Cologuard was established in a cross sectional study of average-risk adults aged 50-84. Cologuard performance in patients ages 45 to 49 years was estimated by sub-group analysis of near-age groups. Colonoscopies performed for a positive result may find as the most clinically significant lesion: colorectal cancer [4.0%], advanced adenoma (including sessile serrated polyps greater than or equal to 1cm diameter) [20%] or non- advanced adenoma [31%]; or no colorectal neoplasia [45%]. These estimates are derived from a prospective cross-sectional screening study of 10,000 individuals at average risk for colorectal cancer who were screened with both Cologuard and colonoscopy. (Magdiel Springer al, N Engl J Med 2014;370(14):5356-8153.) Cologuard may produce a false negative or false positive result (no colorectal cancer or precancerous polyp present at colonoscopy follow up). A negative Cologuard test result does not guarantee the absence of CRC or advanced adenoma (pre-cancer). The current Cologuard screening interval is every 3 years. ([place] Cancer Society and U.S. Multi-Society Task Force). Cologuard performance data in a 10,000 patient pivotal study using colonoscopy as the reference method can be accessed at the following location: www.TuckerNuck.Coolerado/results. Additional description of the Cologuard test process, warnings and precautions can be found at www.[employer].com. Stool 10/18/2023 6:30 AM CDT 10/19/2023 10:19 AM CDT us Cash Kaplan MD LAB BODY FLUIDS AND STOOL S ORDERABLES Final Result [employer] (CLIA #:[id number]) [place] [address] * Pap and High Risk HPV, reflex to Genotyping (10/14/2021 7:25 AM CDT) Thin prep (Pap test) 10/14/2021 7:25 AM CDT 10/14/2021 7:25 AM CDT Narrative PATHOLOGY CH - 10/15/2021 4:43 PM CDT [facility] Department of Pathology [address] [place] [id number] Final Report with Addendum Note to Patients: This report may contain a detailed description of human tissue sent by a health care provider to the laboratory for pathologic evaluation. The content of this report is essential for diagnosis and may provide important critical findings. This information may be unfamiliar to patients to review without a medical professional present. It is advised that the patient review this report in the presence of a health care provider who can answer questions and explain the details. Patient Name: SANIA MCCORMICK Address: [facility] [place] [address] Gender: F : 1965 (Age: 55) Service: Laboratory Location: Lab [facility] #: [id number] Patient Type: Ref Lab Taken: 10/14/2021 Received: 10/14/2021 Accessioned:: 10/15/2021 Reported: 10/15/2021 Physician(s): SHARRI Grant NP Diagnosis: Source of Specimen: SCREENING THIN PREP IMAGED PAP w/ HPV Specimen Adequacy: - Specimen satisfactory for interpretation; endocervical/transformation zone component absent or insufficient General Category: - Negative for intraepithelial lesion or malignancy VICKI Hernadez(ASCP) Report Electronically Reviewed and Signed Out By PAULETTE HernadezASCP) 10/15/2021 16:43:39 Addenda: HPV Test Interpretation NEGATIVE for types 16, 18, 31, 33, 35, 39, 45, 51, 52, 56, 58, 59, 66 and 68. Test performed utilizing Gen-Probe Aptima assay. VICKI Rios(ASCP) Report Electronically Reviewed and Signed Out By PAULETTE RiosASCP) 10/15/2021 14:07:43 Specimen(s) Received: A: SCREENING THIN PREP IMAGED PAP w/ HPV Clinical History: Last Menstrual Period: 2018 Menstrual History: Post-menopausal The Pap test is a screening test used to aid in the detection of cervical cancer and its precursors. It should not be the sole means by which malignant and premalignant lesions are diagnosed. Both false negative and false positive results may occur. It also has poor sensitivity for the detection of endometrial lesions and should not be used to evaluate suspected endometrial abnormalities. For these reasons it is most important to obtain Pap tests at regular intervals. The performance characteristics of some immunohistochemical stains, fluorescence in-situ hybridization tests and immunophenotyping by flow cytometry cited in this report (if any) were determined by the Surgical Pathology Department at [facility] as part of an ongoing it quality analyst program and in compliance with federally mandated regulations drawn from the Clinical Laboratory Improvement Act of 1988 (CLIA '88). Some of these tests rely on the use of analyte specific reagents and are subject to specific labeling requirements by the US Food and Drug Administration. Such diagnostic tests may only be performed in a facility that is certified by the Department of Health and Human Services as a high complexity laboratory under CLIA '88. The FDA has determined that such clearance or approval is not necessary. This test is used for clinical purposes. It should not be regarded as investigational or for research. Nevertheless, federal rules concerning the medical use of analyte specific reagents require that the following disclaimer be attached to the report: This test was developed and its performance characteristics determined by the Surgical Pathology Department [facility]. It has not been cleared or approved by the U. S. Food and Drug Administration. Lorri Zamora NP LAB CYTOLOGY ORDERABLES F inal Result PATHOLOGY [address] [place] [address] * Hepatitis panel, acute (08/19/2020 8:24 AM STOREROOM KEEPER) Hep A IgM Nonreactive Nonreactive [facility] Comment: Interpretive Data: If Hep A IgM Ab is reported as Equivocal, a new sample should be drawn in two weeks for testing. Current interpretive data was last revised on 19. Hep B core IgM Nonreactive Nonreactive [facility] Comment: Interpretive Data If HepB Core IgM Ab is reported as Equivocal, a new sample should be drawn in two weeks for testing. Current interpretive data was last revised on 19. Hep C Ab Nonreactive Nonreactive [facility] Comment:Antibodies to HCV no t detected. Does NOT exclude the possibility of recent exposure to HCV. HepBsAg Nonreactive Nonreactive [facility] Blood specimen (specimen) 08/19/2020 8:24 AM STOREROOM KEEPER 08/19/2020 8:43 AM STOREROOM KEEPER Mike Bar MD LAB MICROBIOLOGY - GENE RAL ORDERABLES Edited Result - Final [facility] Department [place] [address] * Screening Mammogram Bilateral W Andres (06/01/2018) Anatomical Region Laterality Modality Breast Bilateral Mammography Cash Kaplan MD IMG MAMMO PROCEDURES Yessy l Result from Last 3 Months or Most Recently Relevant to Health Maintenance Insurance [place] [employer] [place] [employer] Advance Directives For more information, please contact: [phone] Documents on File Type Date Recorded Patient 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 Circuit 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 Expl anation ADVANCE DIRECTIVE 07/06/2019 9:48 AM ADVANCE DIRECTIVE 06/10/2017 Advance Di rective Checklist * Full Code (Latest Code Status on File) Date Activated Date Inactivated Comments 07/07/2023 12:16 AM 07/14/2023 7:53 PM * Full Code Date Activated Date Inactivated Comments 07/06/2023 8:36 AM 07/06/2023 11:51 PM * Full Code Date Activated Date Inactivated Comments 07/29/2022 7:31 PM 08/03/2022 8:07 PM * Full Code Date Activated Date Inactivated Comments 07/23/2021 12:27 PM 07/23/2021 6:58 PM * Full Code Date Activated Date Inactivated Comments 08/21/2020 2:12 PM 08/21/2020 8:42 PM Care Teams Abstractor Relationship Specialty Start Date End Date Cash Kaplan MD [address] [place] [address] PCP - General Family Medicine 01/18/18 Jefferson Waite MD [address] [place] [address] Consulting Physician Cardiovascular Disease 08/19/20 Jayant Aguila DC [address] [place] [address] Referring Physician Chiropractic Medicine 08/19/20 Gwen Hills PA [address] [place], [place] [address], [place] [address] Gastroenterology 08/03/22 Alexander Amos MD PhD [address] [place], [place] [address], [place] [address] Referring Physician Cardiology 07/14/23
--- OUTSIDE RECORDS SUMMARY | 2024-11-04 16:26 | XMS_ITS | Encounter Summary ---
Author Organization [facility] Healthcare Address [address] [place] [address] Care Team Providers Care Reel Worker Name Role Phone Cash Kaplan MD Primary Care Provider [phone] Jefferson Waite MD Unavailable [phone] Jayant Aguila DC Unavailable [phone] Gwen Hills Unavailable [phone] Alexander Amos MD PhD Unavailable [phone] Aliyah Edmond RN Unavailable [phone] Encounter Details Date Type Department Care Team (Late st Contact Info) Description 08/15/2020 Telephone [facility] ([facility]) [address] [place] [address] Fausto Payne, RT Social History Tobacco Use Types Packs/Day Years Used Date Smoking Tobacco: Never Smokeless Tobacco: Never Alcohol Use Standard Drinks/Week Comments Not Currently 0 (1 standard drink = 0.6 oz pur e alcohol) PHQ-2 Answer Date Recorded PHQ-2 Score 0 02/25/2019 Comments Unknown Sex and Gender Information Value Date Recorded Sex Assigned at Not on file Legal Sex Female 1:17 AM 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 AND DRUG INSPECTOR Gender Identity Not on file Sexual Orientation Not on file documented as of this encounter Plan of Treatment Not on file documented as of this encounter Visit Diagnoses Not on filedocumented in this encounter Additional Health Concerns Infection Onset Date Last Indicated Resolved Time COVID: Suspected 07/29/2022 07/29/2022 07/29/2022 4:05 PM FOOD AND DRUG INSPECTOR COVID: Suspected 07/03/2023 07/03/2023 07/03/2023 12:33 PM FOOD AND DRUG INSPECTOR documented as of this encounter Care Teams Reel Worker Relationship Specialty Start Date End Date Cash Kaplan MD [address] [place] [address] PCP - General Family Medicine 01/18/18 Jefferson Waite MD [address] [place] [address] Consulting Physician Cardiovascular Disease 08/19/20 Jayant Aguila DC [address] [place], [place] [id number] Referring Physician Chiropractic Medicine 08/19/20 Gwen Hills PA [address] [place] [address] Gastroenterology 08/03/22 Alexander Amos MD PhD [address] [place] [address] Referring Physician Cardiology 07/14/23 Aliyah Edmond RN [address] [facility] [address] [place] [address] SHOP Outpatient Manager Development 07/15/23 08/12/23 documented as of this encounter
--- OUTSIDE RECORDS SUMMARY | 2024-11-04 16:26 | XMS_ITS | Clinical Summary ---
Author Organization [facility] 155 [facility] lt Address [address] [place] [address] Care Team Providers Care Dry Sand Molder Name Role Phone Cash Kaplan MD Primary Care Provider [phone] Jefferson Waite MD Unavailable [phone] Jayant Aguila DC Unavailable [phone] Gwen Hills Unavailable [phone] Alexander Amos MD PhD Unavailable [phone] Allergies No known active allergies Medications aspirin 81 mg tablet Take 1 tablet (81 mg total) by mouth nightly Active oxygen Administer 3 L/min into each nostril as needed Active fluticasone propionate (FLONASE) 50 mcg/actuation nasal spray Administer 2 sprays into each nostril daily 16 mL 3 Active blood glucose diagnostic (glucose blood) strip Use as directed to test blood sugar 100 each 4 Active furosemide (LASIX) 40 mg tablet TAKE 1 TABLET BY MOUTH EVERY DAY 90 tablet 3 4 Active atorvastatin (LIPITOR) 20 mg tablet TAKE 1 TABLET BY MOUTH EVERY DAY 90 tablet 3 4 Active blood-glucose meter (OneTouch Ultra2 Meter) misc USE DAILY OR DIRECTED FOR MONITORING OF DIABETES. 1 each 4 Active potassium chloride ER (KLOR-CON) 20 [...] mouth daily 90 tablet 1 4 Active nb-Xu-ipy-iron-f olic-phytostrl 3-200-400 mg-mcg-mg tablet Take 2 capsules [...] and sugars. Noted benefit from visit with certified breastfeeding educator. Encounter for fitting or adj ustment of implantable cardioverter-defibrillator (ICD) 12/06/2023 ICD (implantable cardioverter-defibrillator) dis charge 07/06/2023 Inappropriate shocks from IC D (implantable cardioverter-defibrillator) due to SVT 07/06/2023 Assessment & Plan (07/13/2023 9:14 AM ORDER DESK CLERK): Presenting with inappropriate ICD shocks from SVT, [...] needs to be pursued -rx sent to [facility] OP pharmacy, requires PA - PA submitted and approved -pt had SVT 1/5 requiring adenosine and dofetilide increased to 500mcg BID, had SVT again / requiring adenosine -plan for SVT ablation today Assessment & Plan (07/09/2023 12:07 PM ORDER DESK CLERK): Presenting with inappropriate ICD shocks from SVT, [...] needs to be pursued -rx sent to [facility] pharmacy for paula check Assessment & Plan (07/08/2023 9:16 AM ORDER DESK CLERK): Presenting with inappropriate ICD shocks from SVT, [...] telemetry Assessment & Plan (07/07/2023 3:59 PM ORDER DESK CLERK): Presenting with inappropriate ICD shocks from SVT, [...] 07/06/2023 Assessment & Plan (08/17/2023 9:52 AM ORDER DESK CLERK): History of inappropriate ICD shocks due to [...] (07/18/2021): Added automatically from request for surgery [id number] Encounter for well woman bill rodriguez with routine gynecological exam 09/19/2020 Assessment & [...] results once received. Will have done at [facility]. Breast cancer screening by mammogram 09/19/2020 [...] perform monthly SBE. Will have done at [facility]. 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 Had AFib with RVR on 14 July 2017 causing ICD shock. Not on full-dose oral anticoagulation. Assessment & Plan (06/06/2024 9:11 AM ORDER DESK CLERK): Having occasional episodes of fast heartbeats. It [...] February 2005 for nonischemic cardiomyopathy. Replaced with [employer] Teligen 100 ICD on 19 August 2011. Replaced with [employer] ICD on 23 July 2021 (RL)--SVC coil had to be taken out of the loop. Had a self terminated 21 second episode of nonsustained V-tach on 29 April 2024. Assessment & Plan (09/28/2024 1:52 PM CDT): No firing of ICD , battery in place. Assessment & Plan (06/06/2024 9:11 AM ORDER DESK CLERK): We discussed nonsustained V-tach episode happening a [...] fine. Assessment & Plan (08/17/2023 9:52 AM ORDER DESK CLERK): Single chamber ICD is functioning appropriately as programmed Lead impedance, sensing, and threshold are stable No programming changes Continue remote monitoring Assessment & Plan (07/16/2023 10:34 AM ORDER DESK CLERK): Patient denies any ongoing or persistent palpitations. [...] today. Assessment & Plan (07/30/2021 4:31 PM ORDER DESK CLERK): Patient has done well since ICD change [...] to have a wireless remote. I called [employer] sales representative [employer] and hopefully this can be taken care of soon. 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 On 3 L O2 nasal cannula 24/7 for several years now. Assessment & Plan (12/08/2022 9:04 AM CDT): Shortness of breath about the same. Will be seeing the account review specialist at [place] in a few days. We discussed severe pulmonary hypertension noted on echo from July 2022. Assessment & Plan (12/09/2021 9:16 AM CDT): No recent intervention by the [place] account review specialist. Shortness of breath is about the [...] response. Assessment & Plan (06/06/2024 9:08 AM ORDER DESK CLERK): We again discussed mild LV systolic dysfunction. Apparently could not take Entresto as per my discussion with the account review specialist. She will ask the account review specialist again in a few weeks to [...] She will get another echocardiogram with her account review specialist at [place] in 2 days. If LV still weak, we should add Entresto / p.o. b.i.d.. Assessment & Plan (07/16/2023 10:35 AM ORDER DESK CLERK): Stable, continues carvedilol 25 mg b.I.d., Lasix 40 mg daily and spironolactone 25 mg daily. Continue potassium supplement. Will have labs completed early next week. She is scheduled for follow-up with Cardiology Dr. Shen Assessment & Plan (07/12/2023 1:03 PM ORDER DESK CLERK): Initially diagnosed with dilated cardiomyopathy but has since had stable recovery of LV systolic function on guideline directed medical therapy. -hemodynamically stable, continue to be euvolemic on exam -continue carvedilol 25 mg b.i.d., lasix 40mg daily, and spironolactone 25mg daily -strict I&Os, daily standing weights, low-Na diet -telemetry Assessment & Plan (07/09/2023 12:06 PM ORDER DESK CLERK): Initially diagnosed with dilated cardiomyopathy but has since had stable recovery of LV systolic function on guideline directed medical therapy. -hemodynamically stable, continue to be euvolemic on exam -continue carvedilol 25 mg b.i.d., lasix 40mg daily, and spironolactone 25mg daily -strict I&Os, daily standing weights, low-Na diet -telemetry Assessment & Plan (07/08/2023 9:18 AM ORDER DESK CLERK): Initially diagnosed with dilated cardiomyopathy but has since had stable recovery of LV systolic function on guideline directed medical therapy. -hemodynamically stable, continue to be euvolemic on exam -continue carvedilol 25 mg b.i.d., lasix 40mg daily, and spironolactone 25mg daily -strict I&Os, daily standing weights, low-Na diet -telemetry Assessment & Plan (07/07/2023 4:01 PM ORDER DESK CLERK): Initially diagnosed with dilated cardiomyopathy but has [...] 2020. Assessment & Plan (06/06/2024 9:09 AM ORDER DESK CLERK): We discussed LDL cholesterol goal of less than 100 mg/dL. She has been at goal since 2019. No change in low-dose Lipitor. Assessment & Plan (07/12/2023 1:03 PM ORDER DESK CLERK): Well controlled on current therapies. Will continue aspirin and atorvastatin 20 mg daily. She has no evidence of CAD based off of [facility] dated 08/21/2020 Assessment & Plan (07/09/2023 12:02 PM ORDER DESK CLERK): Well controlled on current therapies. Will continue aspirin and atorvastatin 20 mg daily. She has no evidence of CAD based off of [facility] dated 08/21/2020 Assessment & Plan (07/06/2023 9:03 PM ORDER DESK CLERK): Well controlled on current therapies. Will continue aspirin and atorvastatin 20 mg daily. She has no evidence of CAD based off of [facility] dated 08/21/2020 Assessment & Plan (12/08/2022 9:06 [...] mg/dL. Assessment & Plan (06/23/2017 3:54 PM ORDER DESK CLERK): Lipid abnormalities are unchanged. Nutritional counseling was [...] mono or poly - unsaturated fats in [place] or Peanut oil and Fish are much better than Saturated fats in Butter, Cheese, and Red Meat. Try to avoid Trans fats= partially hydrogenated fat =Margerine and oils used at high temperature in fried restaurant foods, snack chips and sweets.. Essential hypertension 06/23/2017 Assessment & Plan (07/12/2023 1:02 PM ORDER DESK CLERK): Currently normotensive. -continue carvedilol 25 mg b.i.d and spironolactone 25 mg daily Assessment & Plan (07/09/2023 12:02 PM ORDER DESK CLERK): Currently normotensive. -continue carvedilol 25 mg b.i.d and spironolactone 25 mg daily Assessment & Plan (07/08/2023 9:18 AM ORDER DESK CLERK): Currently normotensive. -continue carvedilol 25 mg b.i.d and spironolactone 25 mg daily Assessment & Plan (07/07/2023 4:00 PM ORDER DESK CLERK): Currently normotensive. -continue carvedilol 25 mg b.i.d and spironolactone 25 mg daily Assessment & Plan (03/05/2023 9:40 AM CDT): Blood pressure is well controlled. Assessment & Plan (03/31/2018 7:51 PM CDT): Will continue home medication of Coreg. Assessment & Plan (06/23/2017 3:53 PM ORDER DESK CLERK): Hypertension is unchanged. Continue current treatment regimen. [...] liquor. Don't smoke. Tobacco injures blood vessel dwoning and speeds up the process of hardening [...] 06/23/2017 Assessment & Plan (06/23/2017 5:19 PM ORDER DESK CLERK): Continue With Flonase, encourage to add Zyrtec [...] pulmonary hypertension. She will be seeing the account review specialist at [place] in 2 days. Assessment & Plan (07/16/2023 10:33 AM ORDER DESK CLERK): Since undergone multiple pulmonary stenting. Following with Dr. Euceda. No change in oxygen requirement, continues 3-4 L. Assessment & Plan (07/12/2023 1:02 PM ORDER DESK CLERK): Severe pulmonary HTN secondary to chronic fibrosing [...] pursued Assessment & Plan (07/09/2023 12:06 PM ORDER DESK CLERK): Severe pulmonary HTN secondary to chronic fibrosing [...] pursued Assessment & Plan (07/08/2023 9:17 AM ORDER DESK CLERK): Severe pulmonary HTN secondary to chronic fibrosing mediastinitis complicated by chronic hypoxic respiratory failure on baseline 3 L oxygen at home. She has also underwent multiple pulmonary vein stenting. Patient follows with Dr. Euceda -not a candidate for lung transplantation -continue Lasix 40 mg daily -continue supplemental oxygen Assessment & Plan (07/06/2023 9:05 PM ORDER DESK CLERK): Severe pulmonary HTN secondary to chronic fibrosing [...] and she is following up with the [place] clinic regularly. Shortness of breath is stable. [...] Cardiomyopathy Assessment & Plan (08/17/2023 9:53 AM ORDER DESK CLERK): Nonischemic cardiomyopathy s/p primary prevention ICD 2011, generator changed 2020 and 07/23/2021 - followed by Dr. Waite Most recent LVEF 47% per TTE 07/08/2023 Compensated on exam Assessment & Plan (07/16/2023 10:34 AM ORDER DESK CLERK): Blood pressure is well controlled Resolved Problems [...] 9:40 AM CDT): Stable, continue present management. Encounters Date Type Department Care Team Description 10/04/2024 Telephone [facility] [address] [address] Cash Kaplan MD 09/20/2024 2:30 PM CDT Office Visit [facility] [address] [phone] Cash Kaplan MD Chronic hypoxemic respiratory failure [...] Obesity (BMI 30.0-34.9) 09/11/2024 8:45 AM CDT [facility] [address] [place] [id number] Controlled type 2 diabetes mellitus without complication, without long-term current use of insulin (HCC) 09/08/2024 Telephone [facility] [address] [place] [address] Cash Kaplan MD Medical Question/Miscellaneous 08/10/2024 7:15 AM ORDER DESK CLERK Ancillary Procedure [place] 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 [address] [place] [id number] Dilated cardiomyopathy (HCC); ICD (implantable cardioverter-defibrill ator) in place; SVT (supraventricular tachycardia); SSS (sick sinus syndrome) ([facility]) from Last 3 Months Immunizations Immunization Administration Dates Next Due Influenza, [...] Pneumococcal Polysaccharide PPV23 03/24/2011 ZOSTER Recombinant 10/14/2021 Surgical History Surgery Date Site/Laterality Comments TONSILLECTOMY Tonsillectomy CHOLECYSTECTOMY 07/05/2004 - 07/04/2005 Cholecystectomy SECTION 07/05/1999 - 07/04/2000 section CORONARY ANGIOPLASTY WITH STENT PLACEMENT 05/2008, 08/20/2010 2 stent in pulmonary veins-05/2008, 08/20/2010-heart cath with solid stent placed inside prior stent on right side pulmonary vein CARDIAC CATHETERIZATION 2004, 04/20/2007 , 05/10/2007, 10/06/2007, 05/11/08, 03/31/18 heart cath, last 03/31/18; balloon dilation of LUPV CARDIAC DEFIBRILLATOR PLACEMENT 02/17/2005 ICD insertion CARDIAC DEFIBRILLATOR PLACEMENT 08/19/2011 [facility]HETERIZATION 06/19/2015, 06/17/201706/2015-cath to open pulmonary veins, 06/17/2017-cath to open pulmonary veins Medical History Medical History Date Comments Sclerosing mediastinitis 2006 Hypertension Seasonal allergies Pulmonary embolism (HCC) 2004 On home oxygen therapy Family History Medical History Relation Name Comments Cancer Mother basil skin canc er Hypertension Sister Anesthesia problems Neg Hx Relation Name Status Comments Brother (Age 22) Mother Alive Sister Alive Social History Tobacco Use Types Packs/Day Years Used Date Smoking Tobacco: Never Smokeless Tobacco: Never Tobacco Cessation:Counseling Given: Not Answered Alcohol Use Standard Drinks/Week Comments Not Currently 0 (1 standard drink = 0.6 oz pur e alcohol) [facility] [employer] Answer Date Recorded In the past 12 months has e [employer], gas, oil, or water [facility] threatened to shut off services in your [...] week 07/15/2023 How often do you attend [facility] or jewish services? More than 4 times per year 07/15/2023 Do you belong to any clubs o r organizations such as jehovah's witness groups, unions, fraternal or athletic groups, or [...] staff should administer the PHQ-9) 0 09/20/2024 [facility] - Occupational [...] place to sleep or slept in a correction (including now)? No 07/15/2023 Personal Safety Answer [...] on file Legal Sex Female 1:17 AM ORDER DESK CLERK Gender Identity Not on file Sexual Orientation Not on file Obstetrics History Para Term AB IAB SAB Ectopic Multiple Livin g Live Births 1 1 1 0 0 1 Date Outcome GA Total Labor Labor/2nd/3rd Weight Sex Type Anes PTL Drea A1 A5 Name Clin Term Last Filed Vital Signs Vital Sign Reading [...] 09/20/2024 2:20 PM CDT Plan of Treatment Health Maintenance Due Date Last Done Comments Dilated Eye Exam 1965 Foot Exam 1965 DTaP/Tdap/Td Vaccine (1 - Tdap) 11/28/1974 Hepatitis B Screening 11/28/1981 Pneumococcal vaccine <65 (2 of 2 - PCV) 03/24/2012 03/24/2011 Breast Cancer Screening-Mammogram 06/01/2019 018 Zoster Vaccine (2 of 2) 12/09/2021 10/14/2021 Covid-19 Vaccine (5 - 2023-2 5 season) 2024 07/12/2022, 06/30/2021, 09/28/2020, Additional history exists Hemoglobin A1C 03/14/2025 09/11/2024, 03/05, 09/13/2023, Additional history exists Albumin Creatinine Ratio, Urine 03/20/2025 Lipid Panel 09/11/2025 09/11/2024, 03/05, 09/13/2023, Additional history exists eGFR 09/11/2025 09/11/2024, 03/05, 09/13/2023, Additional history exists Depression Screening 09/20/2025 09/20/2024, 03/27/2024, 09/17/2023, Additional history exists Regular Well Visit/Exam 18-64 09/20/2025, 09/17/2023, 09/02/2022, Additional history exists Cervical Cancer Screening 10/14/2026 10/14/2021, Colon Cancer Screening-DNA Stool 10/17/2026 10/18/19 24, 09/12/2020 Hepatitis C Screening Completed 08/19/2020 Colon Cancer Screening-FIT Discontinued 10/18/2023, Influenza Vaccine Completed 03/27/2024, , 04/30/2022, Additional history exists Medical Devices Implanted Type Area Commercial Loan Closer Device Identifier Shelf Expiration Date Model / Serial / Lot RED - [employer] C.R.M. D151 Dynagen Enduralife Easyview 5.37x7.79cm 1 Chamber Is-1 Df-4 - [id number] - [id number] Implanted:Qty: 1 on 07/23/2021 by Jefferson Waite MD at [facility] ICD [employer] C[employer]M. 11/01/2022 [id number] / [id number] / [employer] Vascade Mvp 6-12fr Venous Closure [id number] - [id number] Implanted:Qty: 1 on 07/13/2023 by Alexander Amos MD PhD at [facility] Vascular Closure Device [employer] 03/23/2025 [id number] [id number] / / [id number] [employer] Device Closure Vascade Od5 Fr Femoral Artery [id number] - [id number] Implanted:Qty: 1 on 07/13/2023 by Alexander Amos MD PhD at [facility] Vascular Closure Device [employer] 03/10/2025 [id number] -[id number] / / [id number] [employer] Vascade Mvp 6-12fr Venous Closure [id number] - [id number] Implanted:Qty: 1 on 07/13/2023 by Alexander Amos MD PhD at [facility] Vascular Closure Device [employer] 02/18/2025 [id number] [id number] / / [id number] [employer] Device Closure Vascade Od5 Fr Femoral Artery [id number] - [id number] Implanted:Qty: 1 on 07/13/2023 by Alexander Amos MD PhD at [facility] Vascular Closure Device [employer] 04/01/2025 [id number] -[id number] / / [id number] Defib Left: Chest Stents Implanted:Qty: 2 Heart [employer] [id number] 3.3x2.9in Large Envelope Absorbable Polyarylate Minocycline - [id number] Implanted:Qty: 1 on 07/23/2021 by Jefferson Waite MD at [facility] [employer] 01/29/2022 [id number] / / [id number] Procedures Procedure Name Priority Date/Time Associated Diagnosis [...] CHECK - REMOTE Routine 08/11/2024 10:15 AM ORDER DESK CLERK Dilated cardiomyopathy (HCC) ICD (implantable cardioverter-defibri llator) [...] HEPATITIS PANEL, ACUTE Routine 08/19/2020 8:24 AM ORDER DESK CLERK SCREENING MAMMOGRAM BILATERAL W ANDRES Schedule Routine, Read Routine (OP Routine) 06/01/2018 Screening for cancer from Last 3 Months or Most Recently Relevant to Health Maintenance Results * eGFR (09/11/2024 8:39 AM CDT) [facility] eGFR >90 >=60 mL/min/1. 73 m2 Comment: [...] was last reviewed 2021. Testing performed by: [address], [address] Blood 09/11/2024 8:39 AM CDT 09/11/2024 12:42 PM CDT Rere Joe NP LAB BLOOD ORDERABLES Final Result [facility]I ROMERO ([place]) 1 [facility] Department [place] [address] * (ABNORMAL) Differential, auto (09/11/2024 8:39 AM CDT) [facility] Neutrophil abs 8.5(H) 1.5 - 6.5 K/cumm Comment:Testing performed by : [facility], [address] [place] [address]., [id number] Imm gran abs 0.0 0.0 - 0.1 K/cumm ZARI ROMERO ([place]) Comment:Testing performed by : [address] [address] Lymphocyte abs 1.9 0.8 - 3.3 K/cumm ZARI ROMERO ([place]) Comment:Testing performed by : [address], [place]., [address] Monocyte abs 0.8 0.2 - 0.8 K/cumm [facility] ([place]) Comment:Testing performed by : [facility], [address] [place] [address]., [address] Eosinophil abs 0.4 0.0 - 0.5 K/cumm [facility] ([place]) Comment:Testing performed by : [facility], [address] [place] [address]., [address] Basophil abs 0.1 0.0 - 0.1 K/cumm [facility] ([place]) Comment:Testing performed by : [facility], [address] [place] [address]., [address] Neutrophil pct 72.7 % [facility] ([place]) Comment: Interpretive Data Percent cell count reference ranges are not reported, since discordance with absolute values may lead to misinterpretation of CBC data. Current Interpretive Data was last revised on 2017. Testing performed by: [address] [address] Imm gran pct 0.3 % [facility] ([place]) Comment: Interpretive Data Percent cell count reference ranges are not reported, since discordance with absolute values may lead to misinterpretation of CBC data. Current Interpretive Data was last revised on 2017. Testing performed by: [address] [address] Lymphocyte pct 16.5 % [facility] ([place]) Comment: Interpretive Data Percent cell count reference ranges are not reported, since discordance with absolute values may lead to misinterpretation of CBC data. Current Interpretive Data was last revised on 2017. Testing performed by: [address] [address] Monocyte pct 6.8 % [facility] ([place]) Comment: Interpretive Data Percent cell count reference ranges are not reported, since discordance with absolute values may lead to misinterpretation of CBC data. Current Interpretive Data was last revised on 2017. Testing performed by: [address] [address] Eosinophil pct 3.1 % [facility] ([place]) Comment: Interpretive Data Percent cell count reference ranges are not reported, since discordance with absolute values may lead to misinterpretation of CBC data. Current Interpretive Data was last revised on 2017. Testing performed by: [facility], [address] [place] [address]., [address] Basophil pct 0.6 % [facility] ([place]) Comment: Interpretive Data Percent cell count reference ranges are not reported, since discordance with absolute values may lead to misinterpretation of CBC data. Current Interpretive Data was last revised on 2017. Testing performed by: [address] [address] Blood 09/11/2024 8:39 AM CDT 09/11/2024 12:28 PM CDT Rere Joe ROD STRAIGHTENER LAB BLOOD ORDERABLES Final Result ZARI ROMERO ([place]) 1 [facility] Department [place] [address] * (ABNORMAL) CBC with auto differential (09/11/2024 8:39 AM CDT) WBC 11.7(H) 3.8 - 9.9 K/cumm Comment:Testing performed by : [address] [address] Hgb 12.0 11.9 - 15.5 g/dL [facility] ([place]) Comment:Testing performed by : [address] [address] Hct 40.5 35.6 - 45.5 % [facility] ([place]) Comment:Testing performed by : [address] [address] Plt 248 150 - 400 K/cumm [facility] ([place]) Comment:Testing performed by : [address], [address] MPV 11.9 9.1 - 12.3 fL [facility] ([place]) Comment:Testing performed by : [address], [address] RBC 4.33 3.90 - 5.20 M/cumm [facility] ([place]) Comment:Testing performed by : [facility], [address] [place] [address], [address] MCV 93.5 81.3 - 96.4 fL ZARI ROMERO ([place]) Comment:Testing performed by : [facility], [address] [place] [address], [address] MCH 27.7 27.1 - 33.3 pg ZARI ROMERO ([place]) Comment:Testing performed by : [facility], [address] [place] [address], [address] MCHC 29.6(L) 32.3 - 35.7 g/dL ZARI ROMERO ([place]) Comment:Testing performed by : [facility], [address] [place] [address], [address] RDW CV 14.8 11.1 - 14.9 % ZARI ROMERO ([place]) Comment:Testing performed by : [facility], [address] [place] [address], [address] RDW SD 51.2(H) 35.7 - 48.1 fL ZARI ROMERO ([place]) Comment:Testing performed by : [facility], [address] [place] [address], [id number] NRBC abs 0.00 0.00 - 0.01 K/cumm ZARI ROMERO ([place]) Comment:Testing performed by : [address], [address] Blood 09/11/2024 8:39 AM CDT 09/11/2024 12:28 PM CDT Rere Joe ROD STRAIGHTENER LAB BLOOD ORDERABLES Final Result ZARI ROMERO ([place]) 1 [facility] Department [place] [address] * (ABNORMAL) Hemoglobin A1c (09/11/2024 8:39 AM CDT) Hgb A1C 6.8(H) 4.0 - 5.6 % Comment:Testing performed by : [address], [address] Estimated Average Glucose 148 mg/dL ZARI ROMERO ([place]) Comment: The ADA recommends reporting an estimated Average Glucose (eAG) with all Hemoglobin A1c results using the equation derived from a study of 507 normal and diabetic adults. Minority populations were underrepresented and children were not included. (Diabetes Care 31:6698-9818, 2008). The eAG is not equivalent to a fasting glucose. Testing performed by: [facility], [address] [place] [address]., [address] Blood 09/11/2024 8:39 AM CDT 09/11/2024 12:28 PM CDT Rere Joe NP LAB BLOOD ORDERABLES Final Result ZARI ROMERO ([place]) 1 [facility] Department of Laboratories [place], [place] [id number] * Lipid panel (09/11/2024 8:39 AM CDT) [...] last revised on 2018. Testing performed by: [facility], [address] [place] [address], [place]., [address] Triglycerides 84 <=149 mg/dL ZARI ROMERO ([place]) Comment: Interpretive Data Ages < or [...] last revised on 2018. Testing performed by: [address] [address] HDL 45 >=40 mg/dL ZARI Nelson ([place]) Comment: Interpretive Data Ages < or [...] last revised on 2018. Testing performed by: [address] [address] LDL, calculated 86 <=129 mg/dL ZARI ROMERO ([place]) Comment: Interpretive Data Ages < or [...] NCEP Expert Panel. Circulation 2004;110:227 3. Keshawn Rodriguez et al. TASIA Cardiol. 2020 November 02;5(5):540-548. doi: 10.1001/jamacardio.2020.0013 Current Interpretive Data was last revised on 2024. Testing performed by: [address] [address] Non-HDL Cholesterol 102 mg/dL ZARI ROMERO ([place]) Comment: Interpretive Data Ages < or [...] last revised on 2018. Testing performed by: [address] [address] Chol/HDL ratio 3 [facility] ([place]) Comment:Testing performed by : [address] [address] Blood 09/11/2024 8:39 AM CDT 09/11/2024 12:28 PM CDT Rere Joe ROD STRAIGHTENER LAB BLOOD ORDERABLES Final Result ZARI ROMERO ([place]) 1 [facility] Department [place] [address] * Comprehensive metabolic panel (09/11/2024 8:39 AM CDT) Sodium 141 135 - 145 mmol/L Comment:Testing performed by : [address] [address] Potassium, pl 4.0 3.3 - 4.9 mmol/L [facility] ([place]) Comment:Testing performed by : [address] [address] Chloride 98 97 - 110 mmol/L [facility] ([place]) Comment:Testing performed by : [address] [address] CO2 30 22 - 32 mmol/L [facility] ([place]) Comment:Testing performed by : [address], [address] Anion gap 13 2 - 15 mmol/L [facility] ([place]) Comment:Testing performed by : [address], [address] BUN 9 6 - 25 mg/dL [facility] ([place]) Comment:Testing performed by : [address], [address] Creatinine 0.65 0.60 - 1.10 mg/dL [facility] ([place]) Comment:Testing performed by : [address], [address] Glucose 125 70 - 199 mg/dL [facility] ([place]) Comment: Interpretive Data Fasting glucose [...] classification and Diagnosis of Diabetes Diabetes Care 202; 46: S19-S40. Current interpretive data was last revised 2022. Testing performed by: [address], [address] Calcium 9.6 8.5 - 10.3 mg/dL [facility] ([place]) Comment:Testing performed by : [address], [address] Bilirubin, total 1.2 0.1 - 1.2 mg/dL [facility] ([place]) Comment:Testing performed by : [address], [address] Protein, pl 8.1 6.5 - 8.5 g/dL [facility] ([place]) Comment:Testing performed by : [address], [address] Albumin 4.2 3.5 - 5.0 g/dL [facility] ([place]) Comment:Testing performed by : [address], [address] Alk phos 119 40 - 130 Units/L [facility] ([place]) Comment:Testing performed by : [address], [address] ALT 19 7 - 45 Units/L [facility] ([place]) Comment:Testing performed by : [address], [address] AST 24 10 - 45 Units/L ZARI ROMERO ([place]) Comment:Testing performed by : [facility], [address] [place] [address], [address] Blood 09/11/2024 8:39 AM CDT 09/11/2024 12:28 PM CDT Rere Joe ROD STRAIGHTENER LAB BLOOD ORDERABLES Final Result ZARI HEATHER ([place]) 1 [facility] Department [place] [address] * DEVICE CHECK - REMOTE (08/11/2024 10:15 AM ORDER DESK CLERK) Anatomical Region Laterality Modality Other Narrative 08/22/2024 9:06 AM ORDER DESK CLERK Images from the original result were not included. 08/11/2024 [employer] quarterly remote device check NOTE The following shows snippets from the complete quarterly report. The complete report in its entirety is attached to this Result Text in Application Engineer. 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 Continue remote monitoring every 3 months. No Alerts Reviewed By Dinorah Kat RN BSN us Jefferson Waite MD CV CARDIAC SERVICES PROCEDURE S Final Result * Albumin Creatinine Ratio, Urine (03/20/2024 10:47 AM CDT) Albumin Ur <12.0 mg/L Comment: Interpretive Data No reference range established. Current interpretive data was last revised 2018. Testing performed by: [facility], [address] [place] [address]., [address] Creatinine Ur 50.0 mg/dL ZARI ROMERO ([place]) Comment: Interpretive Data No reference range established. Current interpretive data was last revised 2018. Testing performed by: [facility] [address] [place] [address]., [address] Albumin Creatinine Ratio, Ur <24 1 - 29 mg/g ZARI ROMERO ([place]) Comment:Testing performed by : [facility], [address] [place] [address]., [address] Urine 03/20/2024 10:4 7 AM CDT 03/20/2024 8:54 PM CDT Rere Joe ROD STRAIGHTENER LAB URINE ORDERABLES Final Result ZARI ROMERO ([place]) 1 [facility] Department [place] [address] * Stool DNA - Cologuard (10/18/2023 6:30 AM CDT) Stool DNA - Cologuard Negative Negative [employer] (CLIA #:[id number]) Comment: NEGATIVE TEST RESULT. A negative Cologuard [...] (Magdiel Springer al, N Engl J Med 2014;370(14):7139-9046) The normal value (reference range) for this assay is negative. COLOGUARD RE-SCREENING RECOMMENDATION: Periodic colorectal cancer screening is an important part of preventive healthcare for asymptomatic individuals at average risk for colorectal cancer. Following a negative Cologuard result, the [place] [employer] Society and U.S. Multi-Society Task Force screening guidelines recommend a Cologuard re-screening interval of 3 years. References: [place] [employer] Guideline for Colorectal Cancer Screening: https://www.cancer.org/cancer/whuxl-zlfwmk-eyvxql/krcmphgdp-jezwqxclb-atkzwyr/ac s-rec ommendations.html.; Eric DK, Mona CR, Alberta DollK, Colorectal Cancer Screening: Recommendations for Physicians and Patients from the U.S. Multi-Society Task Force on Colorectal Cancer Screening , Am J Gastroenterology 2017; 112:0415-5569. TEST DESCRIPTION: Composite algorithmic analysis of stool [...] (Magdiel Springer al, N Engl J Med 2014;370(14):5861-4645.) Cologuard may produce a false negative or false positive result (no colorectal cancer or precancerous polyp present at colonoscopy follow up). A negative Cologuard test result does not guarantee the absence of CRC or advanced adenoma (pre-cancer). The current Cologuard screening interval is every 3 years. ([place] [employer] Society and U.S. Multi-Society Task Force). Cologuard performance data in a 10,000 patient pivotal study using colonoscopy as the reference method can be accessed at the following location: www.[employer]/results. Additional description of the Cologuard test process, warnings and precautions can be found at www.[employer].com. Stool 10/18/2023 6:30 AM CDT 10/19/2023 10:19 AM CDT us Cash Kaplan MD LAB BODY FLUIDS AND STOOL S ORDERABLES Final Result [employer] (CLIA #:[id number]) [place] [address] * Pap and High Risk HPV, reflex to Genotyping (10/14/2021 7:25 AM CDT) Thin prep (Pap test) 10/14/2021 7:25 AM CDT 10/14/2021 7:25 AM CDT Narrative PATHOLOGY - 10/15/2021 4:43 PM CDT [facility]ology [address] [place] [address] Final Report with Addendum Note to Patients: [...] the details. Patient Name: SANIA MCCORMICK Address: [address] [place] [address] Gender: F : 1965 (Age: 55) Service: Laboratory Location: Lab [facility] #: [id number] Patient Type: Ref Lab Taken: 10/14/2021 Received: 10/14/2021 Accessioned:: 10/15/2021 Reported: 10/15/2021 Physician(s): SHARRI Grant NP Diagnosis: Source of Specimen: SCREENING THIN PREP IMAGED PAP w/ HPV Specimen Adequacy: - Specimen satisfactory for interpretation; endocervical/transformation zone component absent or insufficient General Category: - Negative for intraepithelial lesion or malignancy VICKI Hernadez(ASCP) Report Electronically Reviewed and Signed Out By VICKI Hernadez(ASCP) 10/15/2021 16:43:39 Addenda: HPV Test Interpretation NEGATIVE for types 16, 18, 31, 33, 35, 39, 45, 51, 52, 56, 58, 59, 66 and 68. Test performed utilizing Gen-Probe Aptima assay. VICKI Rios(ASCP) Report Electronically Reviewed and Signed Out By VICKI Rios(ASCP) 10/15/2021 14:07:43 Specimen(s) Received: A: SCREENING THIN PREP IMAGED PAP w/ HPV Clinical History: Last Menstrual Period: 2017 Menstrual History: Post-menopausal The Pap test is [...] determined by the Surgical Pathology Department at [facility] as part of an ongoing quality project manager program and in compliance with federally mandated [...] characteristics determined by the Surgical Pathology Department [facility]. It has not been cleared or approved by the U. S. Food and Drug Administration. us Lorri Zamora NP LAB CYTOLOGY ORDERABLES F inal Result PATHOLOGY [address] [place] [address] * Hepatitis panel, acute (08/19/2020 8:24 AM ORDER DESK CLERK) Hep A IgM Nonreactive Nonreactive [facility] Comment: Interpretive Data: If Hep A IgM Ab is reported as Equivocal, a new sample should be drawn in two weeks for testing. Current interpretive data was last revised on 19. Hep B core IgM Nonreactive Nonreactive [facility] Comment: Interpretive Data If HepB Core IgM Ab is reported as Equivocal, a new sample should be drawn in two weeks for testing. Current interpretive data was last revised on 19. Hep C Ab Nonreactive Nonreactive [facility] Comment:Antibodies to HCV no t detected. Does NOT exclude the possibility of recent exposure to HCV. HepBsAg Nonreactive Nonreactive [facility] Blood specimen (specimen) 08/19/2020 8:24 AM ORDER DESK CLERK 08/19/2020 8:43 AM ORDER DESK CLERK Mike Bar MD LAB MICROBIOLOGY - GENE RAL ORDERABLES Edited Result - Final [facility] Department [place] [address] * Screening Mammogram Bilateral W Andres (06/01/2018) Anatomical Region Laterality Modality Breast Bilateral Mammography us Cash Kaplan MD IMG MAMMO PROCEDURES Yessy l Result from Last 3 Months or Most Recently Relevant to Health Maintenance Insurance CHOICE [place] Sub[place] Plan / Payer (Ef fective 2024-Present) Name:Sania Mccormick Relation to Subscriber:Spouse Name:CAM MCCORMICK Date of :1968 (Home) Address: [address] [place] [address] Payer ID:[id number] (NAIC) Type:HEALTHCARE/EXCHANGE Address: [address] [place] [id number] [employer] DIS[employer] [place] CHOICE PRF [place] TRANSPLANT [employer] Advance Directives For more information, please contact: [phone] Documents on File Type Date Recorded Patient Geological E Logger Expl anation ADVANCE DIRECTIVE 07/06/2019 9:48 AM [...] 2:12 PM 08/21/2020 8:42 PM Care Teams Dry Sand Molder Relationship Specialty Start Date End Date Cash Kaplan MD [address] [place] [address] PCP - General Family Medicine 01/18/18 Jeffesron Waite MD [address] [place] [address] Consulting Physician Cardiovascular Disease 08/19/20 Jayant Aguila DC [address] [place] [address] Referring Physician Chiropractic Medicine 08/19/20 Gwen Hills PA [address] [place] [address] Gastroenterology 08/03/22 Alexander Amos MD PhD [address] [place] [address] [place] [address] Referring Physician Cardiology 07/14/23
== END 2024-11-04 11:05 | disposition home or self-care (01) ==
LOC: ANHIMG 11:08
PROVIDERS: PCP Family Medicine; Visit Provider Family Medicine
DX: Z12.31 Encounter for screening mammogram for malignant neoplasm of breast (principal)
CPT/HCPCS: 77063; 77067